=== PATIENT | female | born 1960 | race Caucasian/White ===

== ENCOUNTER 2017-01-17 11:20 | Emergency (ER) | payer MEDICARE, MEDICAID ==
--- NOTE | 2017-01-17 11:51 | ED Physician Chart ---
Chief Complaint/HPI - Patient Information Date Seen:: 01/17/17 Time Seen:: 11:15 Chief Complaint:: Per SNF pt. has RUQ pain and a "lump"in abd. History of Present Illness:: Pt. has hx dementia and is DNR per [facility]. Sent from [facility] for RUQ abd. pain by hx and an abdominal "lump". Allergies:: Allergies Allergy/AdvReac Type Severity Reaction Status Date / Time codeine AdvReac Verified 01/17/17 11:25 Penicillins [PCN] AdvReac Verified 01/17/17 11:25 Vitals:: Vital Signs - 8 hr 01/17/17 11:36 Temp 97.0 F HR 72 RR 16 BP 138/80 O2 Sat % 97 Review of Systems - Review of Systems General/Constitutional: No fever, No chills Skin: No skin lesions Head: No headache ENT: No earache, No sore throat Neck: No neck pain Cardio Vascular: No chest pain, No palpitations Pulmonary: No SOB GI: No nausea, No diarrhea G/U: No dysuria Psychiatric: Other (Hx dementia) Neurological: No syncope, No focal symptoms, No seizure, Confusion Past Medical History - Past Medical History Past Medical History: DM, Dementia, Other (hx of "kidney disease") Family History: None (Pt. cannot give good hx. No known congenital disease.) Social History: Non Smoker, No Alcohol Surgical History: None (No known surg. hx.) Psychiatricy History: Dementia Medication: Reviewed (carbamazepin, Fe, pepcid, lexapro, seroquel, Insulin, donepezil, atorvastatin, lotensin, plavix nifedipine, metoprolol, clonidine) Family Medical History - Family Member Mother History Unknown: Yes Ethnicity: Non- Living Status: Unknown Physical Exam - Physical Examination General/Constitutional: Awake, Well-developed, well-nourished, Alert, GCS 15, Non-toxic appearing (Pt. is alert and can answer basic questions, but is a poor historian. She points to R lower quad as source of pain, but there is no obvious tenderness. ) Head: Atraumatic Eyes: Lids, conjuctiva normal, PERRL, EOMI Skin: Nl inspection, No rash ENMT: External ears, nose nl Neck: Nontender, Full ROM w/o pain Respiratory: Nl effort/Exclusion, Clear to Auscultation, No Wheeze/Rhonchi/Rales Cardio Vascular: RRR, No murmur, gallop, rubs GI: No tenderness/rebounding/guarding (There is some bruising in area of R Lower (not "upper" as in report from SNF) abd.) : No CVA tenderness Neuro/Psych: Normal motor strength, No focal deficits (Pt. is conversant, but not fully oriented.) Labs/Radiology/EKG Results - Lab Results Results: UA shows RBC 5 - 10 and WBC 25 - 50. CMP show borderline K of 3.2. Gluc = 271. BUN/creat = 69/2.8 (prev. hx elevated creat, renal insufficiency, on labs sent in with pt.) CBC normal. Hgb A1c 7.9. S/p getachew, hepatomegally and kidneys nl. ED Septic Shock - . Is Septic Shock (SBP<90, OR Lactate>4 mmol\\L) present?: No - <6hrs of presentation: Vital Signs: Vital Signs - 8 hr /01/27 11:36 Temp 97.0 F HR 72 RR 16 BP 138/80 O2 Sat % 97 Reassessment (Disposition) - Diagnosis Diagnosis:: Dx: Acute UTI - Aftercare/Follow up Instructions Aftercare/Follow-Up Instructions:: Counseled pt regarding lab results/diagnosis & need follow up Medication Prescribed:: Rx: Levaquin 500 mg one po q day. Disp. #10. No refill. - Patient Disposition Discharge/Transfer:: Diet [facility] Cook Care - SNF Condition at Disposition:: Stable ED Discharge Plan - Patient Disposition Admit/Discharge/Transfer: TRANSFER TO ACUTE HOSP Condition at Disposition: Stable
[2017-01-17 11:59] LABS: % BASOPHILS 0.6 % (0.0-2.0); % EOSINOPHILS 3.5 % (0.0-5.0); % LYMPHOCYTES 25.3 % (20.0-50.0); % MONOCYTES 7.4 % (2.0-10.0); % NEUTROPHILS 63.2 % (40.0-80.0); HEMATOCRIT 36.2 % (35.0-45.0); HEMOGLOBIN 11.8 gm/dL (11.7-15.5); MEAN CELL VOLUME 85.5 fl (81-100); MEAN CORPUSCULAR HGB CONC 32.7 pg (28.0-36.0); MEAN PLATELET VOLUME 8.1 fl; NEUTROPHILE ABSOLUTE 4.7 Th/cmm (1.8-8.0); PLATELET COUNT 278 Th/cmm (150-400); RED BLOOD COUNT 4.23 Mil/cmm (3.80-5.10); RED CELL DISTRIBUTION WIDTH 12.4 % (11.5-20.0); WHITE BLOOD COUNT 7.4 Th/cmm (4.8-10.8)
[2017-01-17 12:17] LABS: ALB/GLOB RATIO 1.1 (1.0-1.8); ANION GAP 6.9 (7.0-16.0); BILIRUBIN,TOTAL 0.2 mg/dL (0.3-1.0); BUN/CREATININE RATIO 24.6; CALCIUM SERUM 9.6 mg/dL (8.6-10.3); CARBON DIOXIDE 27.3 mEq/L (21.0-31.0); CREATININE - SERUM 2.8 mg/dL (0.6-1.2); POTASSIUM SERUM 5.2 mEq/L (3.5-5.1)
[2017-01-17 12:54] LABS: URINE BILIRUBIN NEGATIVE (NEGATIVE); URINE BLOOD MODERATE (NEGATIVE); URINE COLOR YELLOW; URINE GLUCOSE (UA) 500 mg/dL (NEGATIVE); URINE KETONE NEGATIVE (NEGATIVE)
[2017-01-17 12:55] LABS: URINE PROTEIN 100 mg/dL (NEGATIVE); URINE UROBILINOGEN 0.2 E.U./dL (0.2 - 1.0)
[2017-01-17 12:59] LABS: URINE BACTERIA MANY /hpf (NONE SEEN); URINE EPITHELIAL CELLS FEW /lpf (FEW); URINE WBC 25-50 /hpf (0-5)
--- NOTE | 2017-01-17 13:19 | Diagnostic Imaging Report ---
Ultrasound abdomen HISTORY: Right upper quadrant pain. History of cholecystectomy COMPARISON: CT abdomen and pelvis on 10/22/2014 Technique: Sonography of the abdomen was performed in multiple planes. FINDINGS: Exam is limited due to body habitus and bowel gas. The liver demonstrates normal echogenicity with no evidence of focal lesions. The liver measures 18.3 cm. The gallbladder has been removed. The common bile duct measures 3 mm. Evaluation of the pancreas is limited due to bowel gas. The right kidney measures 12.0 cm. No evidence of focal lesions or hydronephrosis. The left kidney measures 12.0 cm. No evidence of focal lesions or hydronephrosis. The spleen 12.1 cm. IMPRESSION: Limited exam due to bowel gas and body habitus. Mild hepatomegaly. Nonvisualization of the gallbladder compatible with previous cholecystectomy procedure. No evidence of hydronephrosis.
--- NOTE | 2017-01-17 13:49 | Diagnostic Imaging Report ---
CT abdomen and pelvis without intravenous contrast Indication: right upper quadrant pain Comparison: CT abdomen and pelvis on 10/22/2014 and today's ultrasound 01/17/2017, Technique: Axial images were obtained from the lung bases to the bilateral proximal femurs without IV contrast. Coronal reconstructions were made. total DLP: 752, CTDI13.8 FINDINGS: Hypoventilatory changes of the lung bases are noted. Assessment of the solid organs is limited due to lack of IV contrast. No evidence of focal hepatic lesions. There is a 1 cm calcified lymph node adjacent to the IVC. The patient is status post cholecystectomy. No focal splenic or pancreatic lesions. No focal adrenal lesions. Nonspecific bilateral perinephric inflammatory changes are noted. The urinary bladder is underdistended limiting its evaluation. There is moderate amount of stool throughout the colon. Distal fecal impaction noted. No appendicitis. No free fluid or free air. Mildly distended stomach is noted. No evidence of small bowel obstruction. Degenerative changes of the spine and pelvis are noted. There is 4-mm sclerotic of the L4 vertebral body likely representing a bone island. Moderate atherosclerosis is noted. IMPRESSION: Evidence of prior cholecystectomy. Moderate amount of stool noted. Distended stomach. No evidence of small bowel obstruction No evidence of acute appendicitis. Nonspecific bilateral perinephric inflammatory changes Moderate atherosclerotic vascular disease.
== END 2017-01-17 14:00 | disposition short-term general hospital (02) ==
LOC: ER 11:20
DX: N39.0 Urinary tract infection, site not specified (principal); E11.9 Type 2 diabetes mellitus without complications; Z88.0 Allergy status to penicillin; Z88.5 Allergy status to narcotic agent
CPT/HCPCS: 36415-UA; 76700-TC; 80053-TC; 81001-TC; 83036-90; 85025-TC; 87086-90; Z7610

== ENCOUNTER 2017-01-20 15:33 | Inpatient (IN) | payer MEDICARE, MEDICAID ==
[2017-01-20 16:07] LABS: % BASOPHILS 1.1 % (0.0-2.0); % EOSINOPHILS 3.1 % (0.0-5.0); % LYMPHOCYTES 21.9 % (20.0-50.0); % MONOCYTES 7.8 % (2.0-10.0); % NEUTROPHILS 66.1 % (40.0-80.0); HEMOGLOBIN 11.2 gm/dL (11.7-15.5); MEAN CELL VOLUME 82.9 fl (81-100); MEAN CORPUSCULAR HEMOGLOBIN 28.7 pg (27.0-31.0); MEAN CORPUSCULAR HGB CONC 34.7 pg (28.0-36.0); MEAN PLATELET VOLUME 8.3 fl; PLATELET COUNT 248 Th/cmm (150-400); RED BLOOD COUNT 3.88 Mil/cmm (3.80-5.10); RED CELL DISTRIBUTION WIDTH 12.2 % (11.5-20.0)
[2017-01-20 16:08] LABS: HEMATOCRIT 32.2 % (35.0-45.0); WHITE BLOOD COUNT 9.1 Th/cmm (4.8-10.8)
[2017-01-20 16:19] LABS: PROTHROMBIN TIME (TEST) 10.4 SECONDS (9.5-11.5)
[2017-01-20 16:23] LABS: ALB/GLOB RATIO 1.2 (1.0-1.8); ANION GAP 8.8 (7.0-16.0); BILIRUBIN,TOTAL 0.2 mg/dL (0.3-1.0); BUN/CREATININE RATIO 24.8; CALCIUM SERUM 8.9 mg/dL (8.6-10.3); CARBON DIOXIDE 23.1 mEq/L (21.0-31.0); CHOLESTEROL 255 mg/dL (<200); CREATININE - SERUM 2.7 mg/dL (0.6-1.2); POTASSIUM SERUM 4.9 mEq/L (3.5-5.1); TRIGLYCERIDES 419 mg/dL (<150)
--- NOTE | 2017-01-20 16:27 | ED Physician Chart ---
Chief Complaint/HPI - Patient Information Date Seen:: 01/20/17 Time Seen:: 15:40 Chief Complaint:: abdominal pain History of Present Illness:: this is a 56 yo female sent from the [facility] with recurrent lower abdominal pain and she is demented. she is unable to think to give a review of systems.. Allergies:: Allergies Allergy/AdvReac Type Severity Reaction Status Date / Time codeine AdvReac Verified 01/17/17 11:25 Penicillins [PCN] AdvReac Verified 01/17/17 11:25 Vitals:: Vital Signs - 8 hr 01/20/17 15:36 Temp 98.5 F HR 67 RR 16 BP 134/67 O2 Sat % 97 Historian:: EMS, Medical Records Review:: Nurse's Note Reviewed, Patient unable to respond Review of Systems - Review of Systems General/Constitutional: No fever, No chills, No weight loss, No weakness, No diaphoresis, No edema, No loss of appetite, Other (cannot respond) Skin: No skin lesions, No rash, No bruising Head: No headache, No light-headedness Eyes: No loss of vision, No pain, No diplopia ENT: No earache, No nasal drainage, No sore throat, No tinnitus Neck: No neck pain, No swelling, No thyromegaly, No stiffness, No mass noted Cardio Vascular: No chest pain, No palpitations, No PND, No orthopnea, No edema Pulmonary: No SOB, No cough, No sputum, No wheezing GI: No nausea, No vomiting, No diarrhea, No pain, No melena, No hematochezia, No constipation, No hematemesis G/U: No dysuria, No frequency, No hematuria Musculoskeletal: No bone or joint pain, No back pain, No muscle pain Endocrine: No polyuria, No polydipsia Psychiatric: No prior psych history, No depression, No anxiety, No suicidal ideation Hematopoietic: No bruising, No lymphadenopathy Allergic/Immuno: No urticaria, No angioedema Neurological: No syncope, No focal symptoms, No weakness, No paresthesia, No headache, No seizure, No dizziness, No confusion, No vertigo Past Medical History - Past Medical History Obtainable: Yes Past Medical History: HTN, CVA/TIA, Dementia Family History: None Social History: Non Smoker, No Alcohol, No Drug Use, Care Facility Surgical History: None Psychiatricy History: Dementia Medication: Reviewed Family Medical History - Family Member Mother History Unknown: Yes Ethnicity: Non- Living Status: Unknown Physical Exam - Physical Examination General/Constitutional: Awake, Well-developed, well-nourished, Alert, No distress, GCS 15, Non-toxic appearing, Ambulatory Other Gen/Cons comments:: confused and disoriented. Head: Atraumatic Eyes: Lids, conjuctiva normal, PERRL, EOMI Skin: Nl inspection, No rash, No skin lesions, No ecchymosis, Well hydrated, No lymphadenopathy ENMT: External ears, nose nl, Nasal exam nl, Lips, teeth, gums nl Neck: Nontender, Full ROM w/o pain, No JVD, No nuchal rigidity, No bruit, No mass, No stridor Respiratory: Nl effort/Exclusion, Clear to Auscultation, No Wheeze/Rhonchi/Rales Cardio Vascular: RRR, No murmur, gallop, rubs, NL S1 S2 GI: No organomegaly, No hernia, Normal BS's, No mass/bruits, No McBurney tenderness Other GI comments:: the abdomen and distended and tender : No CVA tenderness Extremities: No tenderness or effusion, Full ROM, normal strength in all extremities, No edema, Normal digits & nails Neuro/Psych: Alert/oriented, DTR's symmetric, Normal sensory exam, Normal motor strength, Judgement/insight normal, Mood normal, Normal gait, No focal deficits Misc: normal gait, Normal back, No paraspinal tenderness Labs/Radiology/EKG Results - Lab Results Results: Laboratory Tests 01/20/17 15:57 WBC 9.1 D RBC 3.88 Hgb 11.2 L Hct 32.2 L D MCV 82.9 MCH 28.7 MCHC Differential 34.7 RDW 12.2 Plt Count 248 MPV 8.3 Neutrophils % 66.1 Lymphocytes % 21.9 Monocytes % 7.8 Eosinophils % 3.1 Basophils % 1.1 - Radiology Results Results: chest x-ray = nad - EKG Interpretations EKG Time:: 15:45 Rate & Rhythm: rate=67 sinus [place]: right axis Intervals: no ectopy Assessment - Assessment General Assessment: urinary tract infection, dehydration, hyperglycemia. ED Septic Shock - . Is Septic Shock (SBP<90, OR Lactate>4 mmol\L) present?: No - <6hrs of presentation: Vital Signs: Vital Signs - 8 hr 01/20/17 15:36 Temp 98.5 F HR 67 RR 16 BP 134/67 O2 Sat % 97 Reassessment (Disposition) - Reassessment Reassessment Condition:: Improved - Diagnosis Diagnosis:: DEHYDRATION DIABETES MELLITUS UNCONTROLLED RESOLVING URINARY TRACT INFECTION. DEMENTIA - Patient Disposition Discharge/Transfer:: Acute Care w/in this hosp
[2017-01-20] MEDS ORDERED: Sodium Chloride 0.9% 1,000 ML IV ONE (16:31)
[2017-01-20] MEDS ORDERED: cefTRIAXone 1 GM in Sodium Chloride 0.9% 50 ML IV ONE (16:42)
[2017-01-20] MEDS ORDERED: INSULIN HUMAN REGULAR 100 UNITS/ML UNIT SUBQ ONE (16:44)
[2017-01-20 16:52] LABS: URINE BILIRUBIN NEGATIVE (NEGATIVE); URINE BLOOD TRACE (NEGATIVE); URINE COLOR YELLOW; URINE EPITHELIAL CELLS FEW /lpf (FEW); URINE GLUCOSE (UA) 500 mg/dL (NEGATIVE); URINE KETONE NEGATIVE (NEGATIVE); URINE PROTEIN 30 mg/dL (NEGATIVE); URINE RBC 0-2 /hpf (0-5); URINE UROBILINOGEN 0.2 E.U./dL (0.2 - 1.0)
[2017-01-20 16:53] LABS: URINE BACTERIA FEW /hpf (NONE SEEN)
[2017-01-20] MEDS ORDERED: Morphine Sulfate 2 mg/mL 1mL Syr IVP PRN (19:48)
[2017-01-20] MEDS ORDERED: INSULIN HUMAN REGULAR 100 UNITS/ML UNIT ONE (20:00)
[2017-01-20] MEDS ORDERED: Levofloxacin 500mg/100mL 500 MG/100 ML BAG IV ONE (21:00)
[2017-01-20] MEDS: D5-0.45NS 1,000 ML IV SCH (22:42)
[2017-01-20] MEDS: INSULIN ASPART SLIDING SCALE 100 UNITS/ML UNIT SUBQ SCH (22:46)
[2017-01-21] MEDS: metroNIDAZOLE 500mg/NS 100mL 500 MG/100 ML BAG IV SCH ×4 (00:03→20:12)
--- NOTE | 2017-01-21 06:13 | History and Physical ---
History of Present Illness - HPI Chief Complaint: Right sided abdominal pain. HPI: 56 yrs female with complex medical problems lives in senior care sent to ER for evaluation of RUQ abd pain reurrent in nature. She was seen by ER on 01/17/17 for evaluation of same symptoms but sent back to [facility] with diagnosis of UTI. Patient is also having assocciated nausea, and constipation.Patient denies other symptoms, she does hav epsych history with dementia history is unreliable but she continue to complain about same symptoms which requires further investigation. She is now admiotted for evaluation of her symptoms. Vital Signs: Last Vital Signs Temp 98.4 F 01/21/17 04:00 Pulse 70 01/21/17 04:00 Resp 18 01/21/17 04:00 BP 146/73 01/21/17 04:00 Pulse Ox 98 01/21/17 04:00 Past Medical History Cardiovascular: Report: HTN Pulmonary: Report: COPD [employer]: Report: CVA GI: Report: GERD Psych: Report: Other (dementia) Musculoskeletal: Report: Osteoarthritis, Muscle Atrophy Rheumatologic: Report: No pertinent Hx Infectious Disease: Report: No Pertinent Hx Renal/: Report: Chronic Renal Failure Endocrine: Report: Diabetes, Hyperthyroidism - Past Surgical History Past Surgical History: Cholecystectomy Family Medical History - Family Member Mother History Unknown: Yes Ethnicity: Non- Living Status: Unknown Hx Family Cancer: No Hx Family Coronary Artery Disease: No Hx Family Congestive Heart Failure: No Hx Family Hypertension: No Hx Family Stroke: No Hx Family Diabetes: Yes Social History Smoke: No Alcohol: None Drugs: None Lives: [facility] Domestic Violence: Negative - Medications Home Medications: Home Medication Medication Instructions Recorded Type carBAMazepine [TEGretol*] 200 mg PO TID #0 tab 10/24/14 Rx Benazepril [Lotensin] 20 mg PO BID 11/19/14 History cloNIDine HCl [Catapres] 0.1 mg PO TID 11/19/14 History Insulin Aspart Sliding Scale See Protocol SUBQ ACHS 11/22/15 History [NovoLOG INSULIN SLIDING SCALE] Nifedipine [Procardia Xl*] 90 mg PO DAILY 11/22/15 History Atorvastatin Calcium [Lipitor] 40 mg PO HS #0 tab 12/01/15 Rx Clopidogrel [Plavix] 75 mg PO DAILY #0 tab 12/01/15 Rx Metoprolol Succinate [Toprol Xl] 50 mg PO DAILY #0 12/01/15 Rx Escitalopram Oxalate [Lexapro] 2.5 mg PO DAILY 01/17/17 History Acetaminophen [Tylenol] 650 mg PO Q6HR PRN 01/20/17 History Cranberry Fruit [Cranberry] 450 mg PO DAILY 01/20/17 History Donepezil Hcl [Aricept] 5 mg PO HS 01/20/17 History Famotidine [Pepcid] 20 mg PO BID 01/20/17 History Fenofibrate,Micronized 134 mg PO DAILY 01/20/17 History [Fenofibrate] Ferrous Sulfate [Iron] 325 mg PO DAILY 01/20/17 History Insulin Detemir [Levemir Insulin] 15 units SUBQ DAILY 01/20/17 History Latanoprost 0.005% Ophth Soln 1 drop EACH EYE QPM 01/20/17 History [Xalatan 0.005% Ophth Soln] Multivitamin w/ Minerals 1 tab PO DAILY 01/20/17 History [Theragran M] QUEtiapine Fumarate [SEROquel] 25 mg PO HS 01/20/17 History - Allergies Allergies/Adverse Reactions: Allergies Allergy/AdvReac Type Severity Reaction Status Date / Time codeine AdvReac Verified 01/17/17 11:25 Penicillins [PCN] AdvReac Verified 01/17/17 11:25 Review of Systems - Review of Systems Constitutional: Report: Other (unable to get meaning ful history) Eyes: Report: Other ENT: Report: Other Respiratory: Report: Other Cardiovascular: Report: Other Gastrointestinal: Report: Nausea, Constipation Genitourinary: Report: No Significant, Other Musculoskeletal: Report: No Significant Skin: Report: No Significant Neurological: Report: No Significant Other: Due to her psych and dementia unable to get meaningful history. Physical Exam - Physical Exam HEENT: Report: Ears Nose Throat within normal limits, Pale Conjunctiva Neck: Report: Within normal limits Cardiovascular Systems: Report: Regular, Rate and Rhythm, no murmurs noted, No JVD Present Respiratory: Report: Clear to Auscultation of lung monet Abdomen: Report: Tender to palpation Back: Report: Inspection of back is within normal limits. Extremities: Report: Non-tender to palpation. Skin: Report: Color of skin is within normal limits Neuro/Psych: Report: Disoriented to name time or place, Weakness or sensory loss noted. - Lab Results All Lab Results last 24 hours: Laboratory Last Values WBC 9.1 Th/cmm (4.8-10.8) D 01/20/17 15:57 RBC 3.88 Mil/cmm (3.80-5.10) 01/20/17 15:57 Hgb 11.2 gm/dL (11.7-15.5) L 01/20/17 15:57 Hct 32.2 % (35.0-45.0) L D 01/20/17 15:57 MCV 82.9 fl (81-100) 01/20/17 15:57 MCH 28.7 pg (27.0-31.0) 01/20/17 15:57 MCHC Differential 34.7 pg (28.0-36.0) 01/20/17 15:57 RDW 12.2 % (11.5-20.0) 01/20/17 15:57 Plt Count 248 Th/cmm (150-400) 01/20/17 15:57 MPV 8.3 fl 01/20/17 15:57 Neutrophils % 66.1 % (40.0-80.0) 01/20/17 15:57 Lymphocytes % 21.9 % (20.0-50.0) 01/20/17 15:57 Monocytes % 7.8 % (2.0-10.0) 01/20/17 15:57 Eosinophils % 3.1 % (0.0-5.0) 01/20/17 15:57 Basophils % 1.1 % (0.0-2.0) 01/20/17 15:57 PT 10.4 SECONDS (9.5-11.5) 01/20/17 15:57 INR 1.00 (0.5-1.4) 01/20/17 15:57 PTT (Actin FS) 25.0 SECONDS (26.0-38.0) L 01/20/17 15:57 Sodium 131 mEq/L (136-145) L 01/20/17 15:57 Potassium 4.9 mEq/L (3.5-5.1) 01/20/17 15:57 Chloride 104 mEq/L (98-107) 01/20/17 15:57 Carbon Dioxide 23.1 mEq/L (21.0-31.0) 01/20/17 15:57 Anion Gap 8.8 (7.0-16.0) 01/20/17 15:57 BUN 67 mg/dL (7-25) H 01/20/17 15:57 Creatinine 2.7 mg/dL (0.6-1.2) H 01/20/17 15:57 Est GFR ( Amer) 23.6 ml/min (>90) 01/20/17 15:57 Est GFR (Non-Af Amer) 19.5 ml/min 01/20/17 15:57 BUN/Creatinine Ratio 24.8 01/20/17 15:57 Glucose 315 mg/dL (70-105) H 01/20/17 15:57 POC Glucose 236 MG/DL (70 - 105) H 01/21/17 05:44 Calcium 8.9 mg/dL (8.6-10.3) 01/20/17 15:57 Total Bilirubin 0.2 mg/dL (0.3-1.0) L 01/20/17 15:57 AST 17 U/L (13-39) 01/20/17 15:57 ALT 16 U/L (7-52) 01/20/17 15:57 Alkaline Phosphatase 34 U/L (34-104) 01/20/17 15:57 Troponin I 0.01 ng/mL (0.01-0.05) 01/20/17 15:57 Total Protein 6.7 gm/dL (6.0-8.3) 01/20/17 15:57 Albumin 3.6 gm/dL (3.7-5.3) L 01/20/17 15:57 Globulin 3.1 gm/dL 01/20/17 15:57 Albumin/Globulin Ratio 1.2 (1.0-1.8) 01/20/17 15:57 Triglycerides 419 mg/dL (<150) H 01/20/17 15:57 Cholesterol 255 mg/dL (<200) H 01/20/17 15:57 LDL Cholesterol Direct 136 mg/dL (75-193) 01/20/17 15:57 HDL Cholesterol 31 mg/dL (23-92) 01/20/17 15:57 TSH 2.64 uIU/ml (0.34-5.60) 01/20/17 15:57 Urine Source CLEAN C 01/20/17 16:40 Urine Color YELLOW 01/20/17 16:40 Urine Clarity CLEAR (CLEAR) 01/20/17 16:40 Urine pH 5.0 01/20/17 16:40 Ur Specific [place] 1.010 (1.005-1.030) 01/20/17 16:40 Urine Protein 30 mg/dL (NEGATIVE) H 01/20/17 16:40 Urine Glucose (UA) 500 mg/dL (NEGATIVE) H 01/20/17 16:40 Urine Ketones NEGATIVE mg/dL (NEGATIVE) 01/20/17 16:40 Urine Blood TRACE (NEGATIVE) 01/20/17 16:40 Urine Nitrate NEGATIVE (NEGATIVE) 01/20/17 16:40 Urine Bilirubin NEGATIVE (NEGATIVE) 01/20/17 16:40 Urine Urobilinogen 0.2 E.U./dL (0.2 - 1.0) 01/20/17 16:40 Ur Leukocyte Esterase NEGATIVE (NEGATIVE) 01/20/17 16:40 Urine RBC 0-2 /hpf (0-5) 01/20/17 16:40 Urine WBC 2-5 /hpf (0-5) 01/20/17 16:40 Ur Epithelial Cells FEW /lpf (FEW) 01/20/17 16:40 Urine Bacteria FEW /hpf (NONE SEEN) 01/20/17 16:40 RPR NONREACTIVE (NONREACTIVE) 01/20/17 15:57 Laboratory Results - last 24 hr 01/20/17 01/21/17 22:44 05:44 POC Glucose 163 H 236 H - Assessment Assessment: Current Active Problems Problem Status Onset RIGHT UPPER QUADRANT PAIN Acute Right upper quadrent abdominal pain. CVA with left sided weakness. Diabetes mellitus. Psych Disorder DJD CKD 3 Hypertension S/P cholecystectomy Fall risk UTI - Plan Plan: GI consult Full liquid diet IV antbiotics Needs EGD Abdominal ultrasound. Diabetes management Reconcile meds Fall precautions Follow up lab Follow consultants recommendations. Care plan reviewed with staff
[2017-01-21] MEDS: INSULIN ASPART SLIDING SCALE 100 UNITS/ML UNIT SUBQ SCH ×4 (06:59→20:40)
[2017-01-21 07:11] LABS: % EOSINOPHILS 3.3 % (0.0-5.0); % LYMPHOCYTES 24.5 % (20.0-50.0); % MONOCYTES 7.8 % (2.0-10.0); % NEUTROPHILS 63.4 % (40.0-80.0); HEMATOCRIT 32.3 % (35.0-45.0); HEMOGLOBIN 10.8 gm/dL (11.7-15.5); MEAN CELL VOLUME 85.3 fl (81-100); MEAN CORPUSCULAR HEMOGLOBIN 28.5 pg (27.0-31.0); MEAN CORPUSCULAR HGB CONC 33.4 pg (28.0-36.0); MEAN PLATELET VOLUME 7.9 fl; NEUTROPHILE ABSOLUTE 5.4 Th/cmm (1.8-8.0); PLATELET COUNT 225 Th/cmm (150-400); RED BLOOD COUNT 3.79 Mil/cmm (3.80-5.10); RED CELL DISTRIBUTION WIDTH 12.5 % (11.5-20.0); WHITE BLOOD COUNT 8.6 Th/cmm (4.8-10.8)
[2017-01-21 07:32] LABS: ALB/GLOB RATIO 1.2 (1.0-1.8); ANION GAP 8.8 (7.0-16.0); BILIRUBIN,TOTAL 0.2 mg/dL (0.3-1.0); BUN/CREATININE RATIO 23.5; CALCIUM SERUM 8.9 mg/dL (8.6-10.3); CARBON DIOXIDE 24.7 mEq/L (21.0-31.0); CREATININE - SERUM 2.6 mg/dL (0.6-1.2); POTASSIUM SERUM 4.5 mEq/L (3.5-5.1)
[2017-01-21] MEDS: Escitalopram Oxalate 5 mg Tab PO SCH (09:54)
[2017-01-21] MEDS: NIFEdipine 30 mg ER Tab PO SCH (09:54)
[2017-01-21] MEDS: Fenofibrate, Micronized 134 mg Cap PO SCH (09:54)
[2017-01-21] MEDS: Enoxaparin 30 mg/0.3 mL 0.3mL Syr SUBQ SCH (09:58)
[2017-01-21] MEDS ORDERED: Morphine Sulfate 4 mg/mL 1mL Syr IVP PRN (11:15)
--- NOTE | 2017-01-21 11:18 | Diagnostic Imaging Report ---
Portable chest x-ray HISTORY: Cough The heart size appears somewhat generous. No focal pulmonary processes. No hilar or mediastinal abnormalities. IMPRESSION: 1. No acute abnormalities
[2017-01-21] MEDS: D5-0.45NS 1,000 ML IV SCH (12:51)
[2017-01-21] MEDS: Levofloxacin 250 mg/50 mL Premix Bag IV SCH (21:37)
[2017-01-22] MEDS: metroNIDAZOLE 500mg/NS 100mL 500 MG/100 ML BAG IV SCH ×3 (05:11→21:12)
[2017-01-22] MEDS: D5-0.45NS 1,000 ML IV SCH ×2 (05:12→12:48)
[2017-01-22 06:12] LABS: % BASOPHILS 0.5 % (0.0-2.0); % EOSINOPHILS 3.3 % (0.0-5.0); % LYMPHOCYTES 26.2 % (20.0-50.0); % MONOCYTES 7.5 % (2.0-10.0); % NEUTROPHILS 62.5 % (40.0-80.0); HEMATOCRIT 32.7 % (35.0-45.0); HEMOGLOBIN 10.9 gm/dL (11.7-15.5); MEAN CELL VOLUME 85.3 fl (81-100); MEAN CORPUSCULAR HEMOGLOBIN 28.5 pg (27.0-31.0); MEAN CORPUSCULAR HGB CONC 33.3 pg (28.0-36.0); MEAN PLATELET VOLUME 7.7 fl; NEUTROPHILE ABSOLUTE 4.5 Th/cmm (1.8-8.0); PLATELET COUNT 243 Th/cmm (150-400); RED BLOOD COUNT 3.84 Mil/cmm (3.80-5.10); RED CELL DISTRIBUTION WIDTH 12.2 % (11.5-20.0); WHITE BLOOD COUNT 7.1 Th/cmm (4.8-10.8)
[2017-01-22 06:58] LABS: ALB/GLOB RATIO 1.1 (1.0-1.8); BILIRUBIN,TOTAL 0.3 mg/dL (0.3-1.0); BUN/CREATININE RATIO 19.5; CALCIUM SERUM 8.8 mg/dL (8.6-10.3); CREATININE - SERUM 2.2 mg/dL (0.6-1.2); POTASSIUM SERUM 4.3 mEq/L (3.5-5.1)
[2017-01-22 07:41] LABS: ANION GAP 6.6 (7.0-16.0); CARBON DIOXIDE 25.7 mEq/L (21.0-31.0)
[2017-01-22] MEDS: INSULIN ASPART SLIDING SCALE 100 UNITS/ML UNIT SUBQ SCH ×4 (08:04→21:21)
[2017-01-22] MEDS: Escitalopram Oxalate 5 mg Tab PO SCH (09:00)
[2017-01-22] MEDS: Fenofibrate, Micronized 134 mg Cap PO SCH (09:01)
[2017-01-22] MEDS: NIFEdipine 30 mg ER Tab PO SCH (09:02)
[2017-01-22] MEDS: Enoxaparin 30 mg/0.3 mL 0.3mL Syr SUBQ SCH (09:02)
--- NOTE | 2017-01-22 12:02 | Internal Medicine Prog Note ---
Internal Medicine Subjective - Subjective Patient seen and examined:: with staff, chart reviewed Patient is:: awake, in bed, confused, other (unable to get meaningful history from patient due to her psych and dementia history) Internal Medicine Objective - Results Result Diagrams: 01/22/17 06:05 01/22/17 06:05 Recent Labs: Laboratory Last Values WBC 7.1 Th/cmm (4.8-10.8) 01/22/17 06:05 RBC 3.84 Mil/cmm (3.80-5.10) 01/22/17 06:05 Hgb 10.9 gm/dL (11.7-15.5) L 01/22/17 06:05 Hct 32.7 % (35.0-45.0) L 01/22/17 06:05 MCV 85.3 fl (81-100) 01/22/17 06:05 MCH 28.5 pg (27.0-31.0) 01/22/17 06:05 MCHC Differential 33.3 pg (28.0-36.0) 01/22/17 06:05 RDW 12.2 % (11.5-20.0) 01/22/17 06:05 Plt Count 243 Th/cmm (150-400) 01/22/17 06:05 MPV 7.7 fl 01/22/17 06:05 Neutrophils % 62.5 % (40.0-80.0) 01/22/17 06:05 Lymphocytes % 26.2 % (20.0-50.0) 01/22/17 06:05 Monocytes % 7.5 % (2.0-10.0) 01/22/17 06:05 Eosinophils % 3.3 % (0.0-5.0) 01/22/17 06:05 Basophils % 0.5 % (0.0-2.0) 01/22/17 06:05 PT 10.4 SECONDS (9.5-11.5) 01/20/17 15:57 INR 1.00 (0.5-1.4) 01/20/17 15:57 PTT (Actin FS) 25.0 SECONDS (26.0-38.0) L 01/20/17 15:57 Sodium 136 mEq/L (136-145) 01/22/17 06:05 Potassium 4.3 mEq/L (3.5-5.1) 01/22/17 06:05 Chloride 108 mEq/L (98-107) H 01/22/17 06:05 Carbon Dioxide 25.7 mEq/L (21.0-31.0) 01/22/17 06:05 Anion Gap 6.6 (7.0-16.0) L 01/22/17 06:05 BUN 43 mg/dL (7-25) H 01/22/17 06:05 Creatinine 2.2 mg/dL (0.6-1.2) H 01/22/17 06:05 Est GFR ( Amer) 29.9 ml/min (>90) 01/22/17 06:05 Est GFR (Non-Af Amer) 24.7 ml/min 01/22/17 06:05 BUN/Creatinine Ratio 19.5 01/22/17 06:05 Glucose 195 mg/dL (70-105) H 01/22/17 06:05 POC Glucose 206 MG/DL (70 - 105) H 01/22/17 06:41 Calcium 8.8 mg/dL (8.6-10.3) 01/22/17 06:05 Total Bilirubin 0.3 mg/dL (0.3-1.0) 01/22/17 06:05 AST 19 U/L (13-39) 01/22/17 06:05 ALT 15 U/L (7-52) 01/22/17 06:05 Alkaline Phosphatase 31 U/L (34-104) L 01/22/17 06:05 Troponin I 0.01 ng/mL (0.01-0.05) 01/20/17 15:57 Total Protein 6.3 gm/dL (6.0-8.3) 01/22/17 06:05 Albumin 3.3 gm/dL (3.7-5.3) L 01/22/17 06:05 Globulin 3.0 gm/dL 01/22/17 06:05 Albumin/Globulin Ratio 1.1 (1.0-1.8) 01/22/17 06:05 Triglycerides 419 mg/dL (<150) H 01/20/17 15:57 Cholesterol 255 mg/dL (<200) H 01/20/17 15:57 LDL Cholesterol Direct 136 mg/dL (75-193) 01/20/17 15:57 HDL Cholesterol 31 mg/dL (23-92) 01/20/17 15:57 Amylase 44 U/L (29-103) 01/21/17 06:55 Lipase 36 U/L (11-82) 01/21/17 06:55 TSH 2.64 uIU/ml (0.34-5.60) 01/20/17 15:57 Urine Source CLEAN C 01/20/17 16:40 Urine Color YELLOW 01/20/17 16:40 Urine Clarity CLEAR (CLEAR) 01/20/17 16:40 Urine pH 5.0 01/20/17 16:40 Ur Specific [place] 1.010 (1.005-1.030) 01/20/17 16:40 Urine Protein 30 mg/dL (NEGATIVE) H 01/20/17 16:40 Urine Glucose (UA) 500 mg/dL (NEGATIVE) H 01/20/17 16:40 Urine Ketones NEGATIVE mg/dL (NEGATIVE) 01/20/17 16:40 Urine Blood TRACE (NEGATIVE) 01/20/17 16:40 Urine Nitrate NEGATIVE (NEGATIVE) 01/20/17 16:40 Urine Bilirubin NEGATIVE (NEGATIVE) 01/20/17 16:40 Urine Urobilinogen 0.2 E.U./dL (0.2 - 1.0) 01/20/17 16:40 Ur Leukocyte Esterase NEGATIVE (NEGATIVE) 01/20/17 16:40 Urine RBC 0-2 /hpf (0-5) 01/20/17 16:40 Urine WBC 2-5 /hpf (0-5) 01/20/17 16:40 Ur Epithelial Cells FEW /lpf (FEW) 01/20/17 16:40 Urine Bacteria FEW /hpf (NONE SEEN) 01/20/17 16:40 RPR NONREACTIVE (NONREACTIVE) 01/20/17 15:57 - Physical Exam Vitals and I&O: Vital Signs Temp 97.8 F 01/22/17 08:00 Pulse 81 01/22/17 10:29 Resp 19 01/22/17 08:00 BP 185/89 01/22/17 09:02 Pulse Ox 97 01/22/17 08:00 Intake & Output 01/21/17 01/22/17 01/22/17 18:59 06:59 18:59 Intake Total 1350 2200 Balance 1350 2200 Weight (lbs) 91.172 kg 91.172 kg Intake: Intake, IV Amount 1100 2100 D5-0.45NS 1,000 ml @ 100 1000 1000 mls/hr IV .Q10H [facility] Rx#: [id number] metroNIDAZOLE 500mg/NS 100 100 100mL 500 mg In 100 ml @ 100 mls/hr IV Q8HR [facility] Rx #:[id number] Oral 250 100 Other: # Voids 2 2 # Bowel Movements 0 Active Medications: Current Medications Acetaminophen (Tylenol) 650 mg PO Q6HR PRN PRN Reason: PAIN Stop: 03/21/17 19:55 Benazepril HCl (Lotensin) 20 mg PO BID [facility] Stop: 03/22/17 08:59 Last Admin: 01/22/17 09:01 Dose: 20 mg Carbamazepine (Tegretol) 200 mg PO TID [facility] PRN Reason: Protocol Stop: 03/21/17 20:59 Last Admin: 01/22/17 09:01 Dose: 200 mg Clonidine HCl (Catapres) 0.1 mg PO TID [facility] Stop: 03/21/17 20:59 Last Admin: 01/22/17 10:29 Dose: Not Given Clopidogrel Bisulfate (Plavix) 75 mg PO DAILY [facility] Stop: 03/22/17 08:59 Last Admin: 01/22/17 09:01 Dose: 75 mg Donepezil HCl (Aricept) 5 mg PO HS [facility] Stop: 03/21/17 20:59 Last Admin: 01/21/17 20:39 Dose: 5 mg Enoxaparin Sodium (Lovenox) 30 mg SUBQ DAILY [facility] Stop: 03/22/17 08:59 Last Admin: 01/22/17 09:02 Dose: 30 mg Escitalopram Oxalate (Lexapro) 2.5 mg PO DAILY [facility] PRN Reason: Protocol Stop: 03/22/17 08:59 Last Admin: 01/22/17 09:00 Dose: 2.5 mg Fenofibrate (Tricor) 134 mg PO DAILY [facility] Stop: 03/22/17 08:59 Last Admin: 01/22/17 09:01 Dose: 134 mg Dextrose/Sodium Chloride (D5-0.45ns) 1,000 mls @ 100 mls/hr IV .Q10H [facility] Stop: 03/21/17 19:59 Last Admin: 01/22/17 05:12 Dose: 100 mls/hr Metronidazole (Flagyl) 500 mg in 100 mls @ 100 mls/hr IV Q8HR [facility] Stop: 03/21/17 20:59 Last Admin: 01/22/17 05:11 Dose: 100 mls/hr Levofloxacin (Levaquin Pb) 250 mg in 50 mls @ 50 mls/hr IV Q24HR [facility] Stop: 03/22/17 20:59 Last Admin: 01/21/17 21:37 Dose: 50 mls/hr Insulin Aspart (Novolog Insulin Sliding Scale) 0 units SUBQ ACHS [facility] PRN Reason: Protocol Stop: 03/21/17 20:59 Last Admin: 01/22/17 08:04 Dose: Not Given Latanoprost (Xalatan 0.005% [facility]) 1 drop EACH EYE QPM [facility] Stop: 03/22/17 16:59 Last Admin: 01/21/17 17:11 Dose: 1 drop Lorazepam (Ativan) 1 mg IVP Q4H PRN; Protocol PRN Reason: Anxiety/Agitation Stop: 03/21/17 19:47 Metoprolol Succinate (Toprol Xl) 50 mg PO DAILY [facility] Stop: 03/22/17 08:59 Last Admin: 01/22/17 09:01 Dose: 50 mg Miscellaneous (Clinical Monitoring) 1 ea MC DAILY PRN PRN Reason: RENAL Stop: 03/22/17 09:03 Morphine Sulfate (Morphine) 2 mg IVP Q4H PRN PRN Reason: SEVERE PAIN Stop: 03/22/17 11:14 Last Admin: 01/21/17 11:29 Dose: 2 mg Nifedipine (Procardia Xl) 90 mg PO DAILY [facility] Stop: 03/22/17 08:59 Last Admin: 01/22/17 09:02 Dose: 90 mg Ondansetron HCl (Zofran) 4 mg IVP Q6H PRN PRN Reason: Nausea / Vomiting Stop: 03/21/17 19:47 Last Admin: 01/21/17 11:29 Dose: 4 mg Quetiapine Fumarate (Seroquel) 25 mg PO HS [facility] PRN Reason: Protocol Stop: 03/21/17 20:59 Last Admin: 01/21/17 20:39 Dose: 25 mg General: alert HEENT: NC/AT, PERRLA, EOMI Neck: Supple, No JVD Lungs: CTAB Cardiovascular: RRR Abdomen: soft, other (right upper quadrant tenderness noted) Extremities: clear, other (no clubbing or cyanosis.) Neurological: alert, spastic, other (right-sided weakness and spasticity noted.) - Procedures Procedures: Procedures Procedure Code Date EGD BIOPSY SINGLE/MULTIPLE 99635 12/29/14 ESOPHAGOGASTRODUODENOSCOPY [EGD] W/CLOSED BIOPSY 45.16 12/29/14 Internal Medicine Assmt/Plan - Assessment Assessment: Current Active Problems Problem Status Onset RIGHT UPPER QUADRANT PAIN Acute Right upper quadrent abdominal pain. CVA with left sided weakness. Diabetes mellitus. Psych Disorder DJD CKD 3 Hypertension S/P cholecystectomy Fall risk UTI - Plan Plan: Discussed with gastroenterology about further workup will proceed with EGD I will continue pain management IV antibiotic. General nursing care. Keep her on full liquid diet. Monitor glucose and vital. Follow lab. Follow organizational consultant's recommendations. Symptoms management. Medication management. MAR and reviewed. Nutritional Asmnt/Malnutr-PDOC - Dietary Evaluation Malnutrition Findings (Please click <Entered> for more info): Nutritional Asmnt/Malnutrition Start: 01/21/17 16: 15 Text: Status: Complete Freq: Document 01/21/17 16:15 GSUN (Rec: 01/21/17 16:41 GSUN [email or web address]) Nutritional Asmnt/Malnutrition Patient General Information Nutritional Screening Consult Diagnosis Abd pain, CVA left sided weakness, DM, CKD 3, psych disorder Pertinent Medical Hx/Surgical Hx HTN, COPD, CVA, GERD, dementia , osteoarthritis, muscle atrophy, chronic renal failure , DM, hyperthyroidism, cholecystectomy Subjective Information 56 [address] consult for glucose >180. Pt was pleasant, but a questionable/ poor historian. spoke to SHAILESH Garcia, pt is currently on clear liquid, NPO after midnight for possible procedures tomorrow. Explained to pt nutrition plan or care, CCHO low sodium diet when diet resumed, pt appeared pleasant but confused. Teeth intact. Pt report usually good appetite. No wasting noted. Pt does not know UBW. CBW 204. 3lb via bedscale. Current Diet Order/ Nutrition Support Clear liquid Pertinent Medications D5-0.45ns, Novolog, Levaquin, Flagyl, Morphine, Zofran, Seroquel Pertinent Labs 01/21: BUN 61H, creatinine 2.6H , glucose 191H Nutritional Hx/Data Height 1.6 m Height (Calculated Centimeters) 160.0 Current Weight (lbs) 92.669 kg Weight (Calculated Kilograms) 92.7 Weight (Calculated Grams) 81923.9 [place] Body Weight 115 Weight Status Obese GI Symptoms Skin Integrity/Comment: José Luis 16. Skin intact. Estimated Nutritional Goals BEE in Kcals: Adj wt of IBW Calories/Kcals/Kg AdjBW 137.3lb/62.4kg Kcals Calculated 1560-1872kcal (25-30kcal/kg) Protein: Adj wt of IBW Protein Calculated 44-62g (0.7-1g/kg, renal) Fluid: ml Per Md (dx. CKD III) Nutritional Problem 3. Problem Problem Impaired nutrient utilization related to Etiology CKD III aeb Signs/Symptoms: BUN 61H, creatinine 2.6H 2. Problem Problem Altered nutrition related laboratory values related to Etiology DM aeb Signs/Symptoms: glucose 315 on adm 1. Problem Problem Altered GI function related to Etiology unknown etiology aeb Signs/Symptoms: procedures pending, admitted due to abd pain, currently on clears Intervention/Recommendation Comments 1. When medically feasible to reusme diet, recommend [id number] low sodium. 2. Explained possible diet order to pt, pt appeared unable to comprehend. Unable to provide nutrition education . Expected Outcomes/Goals Expected Outcomes/Goals 1. PO intake to resume and to meet at least 75% of estimated nutritional needs.
--- NOTE | 2017-01-22 14:34 | Diagnostic Imaging Report ---
Abdominal ultrasound HISTORY: Pain The liver appears enlarged. No focal lesions. The gallbladder is not seen consistent with patient's surgical history. No biliary dilatation. Pancreas cannot be seen due to bowel gas. Right kidney appears normal. The left kidney is generous in size (13.1 x 6 0.9 to 7.1 cm). No focal lesions. No hydronephrosis. The spleen appears enlarged at 14.5 cm). No other retroperitoneal or intra-abdominal abnormalities. IMPRESSION: 1. Nonvisualization of the gallbladder consistent with patient's reported surgical history 2. Hepatosplenomegaly
[2017-01-22] MEDS: Levofloxacin 250 mg/50 mL Premix Bag IV SCH (21:00)
[2017-01-23] MEDS: metroNIDAZOLE 500mg/NS 100mL 500 MG/100 ML BAG IV SCH ×3 (05:19→20:37)
[2017-01-23] MEDS: INSULIN ASPART SLIDING SCALE 100 UNITS/ML UNIT SUBQ SCH ×4 (06:43→20:38)
[2017-01-23] MEDS: NIFEdipine 30 mg ER Tab PO SCH (10:27)
[2017-01-23] MEDS: Escitalopram Oxalate 5 mg Tab PO SCH (10:27)
[2017-01-23] MEDS: Enoxaparin 30 mg/0.3 mL 0.3mL Syr SUBQ SCH (10:27)
[2017-01-23] MEDS: Fenofibrate, Micronized 134 mg Cap PO SCH (10:27)
--- NOTE | 2017-01-23 11:55 | Operative Report ---
GI Operative Report - Gastroenterology Procedure:: EGD Indication for procedure:: abdominal pain, dyspepsia, and anemia Procedure consent:: Risk benefits alternatives were d/w. Mentioned bleeding infection, perforation , and disability, cardiopulmonary distress and arrest missed lesions and cancer and need for surgery. Family expressed understanding and provided informed consent. Anesthesia:: MAC Preoperative diagnosis:: Dyspepsia and anemia Postoperative diagnosis:: GE junction at 35 cm gastritis s/p bx and normal duodenum Description of Procedure:: The endoscope was advanced from the mouth into the 2nd portion of the duodenum. The scope was brought back to the stomach and retroflexion was performed. The scope was straightened and then removed. Recommendations:: 1.follow h/h 2.protonix 3.check biopsy 4.unable to perform colonoscopy due to lack of bowel prep
--- NOTE | 2017-01-23 18:37 | General Progress Note ---
Subjective - Review of Systems Service Date: 01/23/17 Subjective: Patient is seen and examined. Patient has no new complaints. Status post EGD findings discussed with the patient's assigned nurse no active bleeding consistent with gastritis. Objective - Results Result Diagrams: 01/22/17 06:05 01/22/17 06:05 Recent Labs: Laboratory Last Values WBC 7.1 Th/cmm (4.8-10.8) 01/22/17 06:05 RBC 3.84 Mil/cmm (3.80-5.10) 01/22/17 06:05 Hgb 10.9 gm/dL (11.7-15.5) L 01/22/17 06:05 Hct 32.7 % (35.0-45.0) L 01/22/17 06:05 MCV 85.3 fl (81-100) 01/22/17 06:05 MCH 28.5 pg (27.0-31.0) 01/22/17 06:05 MCHC Differential 33.3 pg (28.0-36.0) 01/22/17 06:05 RDW 12.2 % (11.5-20.0) 01/22/17 06:05 Plt Count 243 Th/cmm (150-400) 01/22/17 06:05 MPV 7.7 fl 01/22/17 06:05 Neutrophils % 62.5 % (40.0-80.0) 01/22/17 06:05 Lymphocytes % 26.2 % (20.0-50.0) 01/22/17 06:05 Monocytes % 7.5 % (2.0-10.0) 01/22/17 06:05 Eosinophils % 3.3 % (0.0-5.0) 01/22/17 06:05 Basophils % 0.5 % (0.0-2.0) 01/22/17 06:05 PT 10.4 SECONDS (9.5-11.5) 01/20/17 15:57 INR 1.00 (0.5-1.4) 01/20/17 15:57 PTT (Actin FS) 25.0 SECONDS (26.0-38.0) L 01/20/17 15:57 Sodium 136 mEq/L (136-145) 01/22/17 06:05 Potassium 4.3 mEq/L (3.5-5.1) 01/22/17 06:05 Chloride 108 mEq/L (98-107) H 01/22/17 06:05 Carbon Dioxide 25.7 mEq/L (21.0-31.0) 01/22/17 06:05 Anion Gap 6.6 (7.0-16.0) L 01/22/17 06:05 BUN 43 mg/dL (7-25) H 01/22/17 06:05 Creatinine 2.2 mg/dL (0.6-1.2) H 01/22/17 06:05 Est GFR ( Amer) 29.9 ml/min (>90) 01/22/17 06:05 Est GFR (Non-Af Amer) 24.7 ml/min 01/22/17 06:05 BUN/Creatinine Ratio 19.5 01/22/17 06:05 Glucose 195 mg/dL (70-105) H 01/22/17 06:05 POC Glucose 235 MG/DL (70 - 105) H 01/23/17 09:52 Calcium 8.8 mg/dL (8.6-10.3) 01/22/17 06:05 Total Bilirubin 0.3 mg/dL (0.3-1.0) 01/22/17 06:05 AST 19 U/L (13-39) 01/22/17 06:05 ALT 15 U/L (7-52) 01/22/17 06:05 Alkaline Phosphatase 31 U/L (34-104) L 01/22/17 06:05 Troponin I 0.01 ng/mL (0.01-0.05) 01/20/17 15:57 Total Protein 6.3 gm/dL (6.0-8.3) 01/22/17 06:05 Albumin 3.3 gm/dL (3.7-5.3) L 01/22/17 06:05 Globulin 3.0 gm/dL 01/22/17 06:05 Albumin/Globulin Ratio 1.1 (1.0-1.8) 01/22/17 06:05 Triglycerides 419 mg/dL (<150) H 01/20/17 15:57 Cholesterol 255 mg/dL (<200) H 01/20/17 15:57 LDL Cholesterol Direct 136 mg/dL (75-193) 01/20/17 15:57 HDL Cholesterol 31 mg/dL (23-92) 01/20/17 15:57 Amylase 44 U/L (29-103) 01/21/17 06:55 Lipase 36 U/L (11-82) 01/21/17 06:55 TSH 2.64 uIU/ml (0.34-5.60) 01/20/17 15:57 Urine Source CLEAN C 01/20/17 16:40 Urine Color YELLOW 01/20/17 16:40 Urine Clarity CLEAR (CLEAR) 01/20/17 16:40 Urine pH 5.0 01/20/17 16:40 Ur Specific [place] 1.010 (1.005-1.030) 01/20/17 16:40 Urine Protein 30 mg/dL (NEGATIVE) H 01/20/17 16:40 Urine Glucose (UA) 500 mg/dL (NEGATIVE) H 01/20/17 16:40 Urine Ketones NEGATIVE mg/dL (NEGATIVE) 01/20/17 16:40 Urine Blood TRACE (NEGATIVE) 01/20/17 16:40 Urine Nitrate NEGATIVE (NEGATIVE) 01/20/17 16:40 Urine Bilirubin NEGATIVE (NEGATIVE) 01/20/17 16:40 Urine Urobilinogen 0.2 E.U./dL (0.2 - 1.0) 01/20/17 16:40 Ur Leukocyte Esterase NEGATIVE (NEGATIVE) 01/20/17 16:40 Urine RBC 0-2 /hpf (0-5) 01/20/17 16:40 Urine WBC 2-5 /hpf (0-5) 01/20/17 16:40 Ur Epithelial Cells FEW /lpf (FEW) 01/20/17 16:40 Urine Bacteria FEW /hpf (NONE SEEN) 01/20/17 16:40 RPR NONREACTIVE (NONREACTIVE) 01/20/17 15:57 - Physical Exam Vitals and I&O: Vital Signs Temp 98.4 F 01/23/17 16:00 Pulse 84 01/23/17 16:54 Resp 19 01/23/17 16:00 BP 149/87 01/23/17 16:54 Pulse Ox 97 01/23/17 16:00 Intake & Output 01/22/17 01/23/17 01/23/17 18:59 06:59 18:59 Intake Total 860 100 200 Balance 860 100 200 Weight (lbs) 91.172 kg 91.172 kg Intake: Intake, IV Amount 860 100 200 D5-0.45NS 1,000 ml @ 100 760 mls/hr IV .Q10H [facility] Rx#: [id number] metroNIDAZOLE 500mg/NS 100 100 200 100mL 500 mg In 100 ml @ 100 mls/hr IV Q8HR [facility] Rx #:[id number] Other: # Voids 2 1 # Bowel Movements 1 Active Medications: Current Medications Acetaminophen (Tylenol) 650 mg PO Q6HR PRN PRN Reason: PAIN Stop: 03/21/17 19:55 Benazepril HCl (Lotensin) 20 mg PO BID [facility] Stop: 03/22/17 08:59 Last Admin: 01/23/17 16:54 Dose: 20 mg Carbamazepine (Tegretol) 200 mg PO TID [facility] PRN Reason: Protocol Stop: 03/21/17 20:59 Last Admin: 01/23/17 14:38 Dose: 200 mg Clonidine HCl (Catapres) 0.1 mg PO TID [facility] Stop: 03/21/17 20:59 Last Admin: 01/23/17 14:38 Dose: 0.1 mg Clopidogrel Bisulfate (Plavix) 75 mg PO DAILY [facility] Stop: 03/22/17 08:59 Last Admin: 01/23/17 10:26 Dose: Not Given Donepezil HCl (Aricept) 5 mg PO HS [facility] Stop: 03/21/17 20:59 Last Admin: 01/22/17 21:11 Dose: 5 mg Enoxaparin Sodium (Lovenox) 30 mg SUBQ DAILY [facility] Stop: 03/22/17 08:59 Last Admin: 01/23/17 10:27 Dose: Not Given Escitalopram Oxalate (Lexapro) 2.5 mg PO DAILY [facility] PRN Reason: Protocol Stop: 03/22/17 08:59 Last Admin: 01/23/17 10:27 Dose: Not Given Fenofibrate (Tricor) 134 mg PO DAILY [facility] Stop: 03/22/17 08:59 Last Admin: 01/23/17 10:27 Dose: Not Given Dextrose/Sodium Chloride (D5-0.45ns) 1,000 mls @ 100 mls/hr IV .Q10H [facility] Stop: 03/21/17 19:59 Last Admin: 01/22/17 12:48 Dose: 100 mls/hr Metronidazole (Flagyl) 500 mg in 100 mls @ 100 mls/hr IV Q8HR [facility] Stop: 03/21/17 20:59 Last Infusion: 01/23/17 17:15 Dose: Infused Levofloxacin (Levaquin Pb) 250 mg in 50 mls @ 50 mls/hr IV Q24HR [facility] Stop: 03/22/17 20:59 Last Admin: 01/22/17 21:00 Dose: 50 mls/hr Insulin Aspart (Novolog Insulin Sliding Scale) 0 units SUBQ ACHS [facility] PRN Reason: Protocol Stop: 03/21/17 20:59 Last Admin: 01/23/17 17:16 Dose: 4 units Latanoprost (Xalatan 0.005% [facility]) 1 drop EACH EYE QPM [facility] Stop: 03/22/17 16:59 Last Admin: 01/23/17 16:54 Dose: 1 drop Lorazepam (Ativan) 1 mg IVP Q4H PRN; Protocol PRN Reason: Anxiety/Agitation Stop: 03/21/17 19:47 Metoprolol Succinate (Toprol Xl) 50 mg PO DAILY [facility] Stop: 03/22/17 08:59 Last Admin: 01/23/17 10:27 Dose: Not Given Miscellaneous (Clinical Monitoring) 1 ea MC DAILY PRN PRN Reason: RENAL Stop: 03/22/17 09:03 Morphine Sulfate (Morphine) 2 mg IVP Q4H PRN PRN Reason: SEVERE PAIN Stop: 03/22/17 11:14 Last Admin: 01/21/17 11:29 Dose: 2 mg Nifedipine (Procardia Xl) 90 mg PO DAILY [facility] Stop: 03/22/17 08:59 Last Admin: 01/23/17 10:27 Dose: Not Given Ondansetron HCl (Zofran) 4 mg IVP Q6H PRN PRN Reason: Nausea / Vomiting Stop: 03/21/17 19:47 Last Admin: 01/21/17 11:29 Dose: 4 mg Pantoprazole Sodium (Protonix) 40 mg IVP DAILY [facility] Stop: 03/25/17 08:59 Quetiapine Fumarate (Seroquel) 25 mg PO HS [facility] PRN Reason: Protocol Stop: 03/21/17 20:59 Last Admin: 01/22/17 21:11 Dose: 25 mg General: Alert, No acute distress HEENT: Atraumatic, PERRLA Neck: Supple Cardiovascular: Regular rate, Normal S1, Normal S2 Lungs: Clear to auscultation Abdomen: Bowel sounds, Soft Extremities: Clubbing Neurological: Other (right-sided weakness with expressive aphasia and dysphagia. ) Skin: Rash Psych/Mental Status: Other (labile mood) - Procedures Procedures: Procedures Procedure Code Date EGD BIOPSY SINGLE/MULTIPLE 57399 12/29/14 ESOPHAGOGASTRODUODENOSCOPY [EGD] W/CLOSED BIOPSY 45.16 12/29/14 Assessment/Plan - Problem List Patient Problems: All Active Problems RIGHT UPPER QUADRANT PAIN (Acute) Agitation (Acute) R45.1 Behavior problem (Acute) Psychosis (Acute) F29 Uncontrolled hypertension (Acute) I10 - Assessment Assessment: Current Active Problems Problem Status Onset RIGHT UPPER QUADRANT PAIN Acute Right upper quadrent abdominal pain most likely due to hepatosplenomegaly. CVA with left sided weakness. Gastritis Diabetes mellitus. Psych Disorder DJD CKD 3 Hypertension S/P cholecystectomy Fall risk UTI - Plan Plan: Discharge to care home. CPOE done. MAR and reconciled and discussed with RN. Nutritional Asmnt/Malnutr-PDOC - Dietary Evaluation Malnutrition Findings (Please click <Entered> for more info): Nutritional Asmnt/Malnutrition Start: 01/21/17 16: 15 Text: Status: Complete Freq: Document 01/21/17 16:15 GSUN (Rec: 01/21/17 16:41 GSUN [email or web address]) Nutritional Asmnt/Malnutrition Patient General Information Nutritional Screening Consult Diagnosis Abd pain, CVA left sided weakness, DM, CKD 3, psych disorder Pertinent Medical Hx/Surgical Hx HTN, COPD, CVA, GERD, dementia , osteoarthritis, muscle atrophy, chronic renal failure , DM, hyperthyroidism, cholecystectomy Subjective Information 56 [address] consult for glucose >180. Pt was pleasant, but a questionable/ poor historian. spoke to SHAILESH Garcia, pt is currently on clear liquid, NPO after midnight for possible procedures tomorrow. Explained to pt nutrition plan or care, CCHO low sodium diet when diet resumed, pt appeared pleasant but confused. Teeth intact. Pt report usually good appetite. No wasting noted. Pt does not know UBW. CBW 204. 3lb via bedscale. Current Diet Order/ Nutrition Support Clear liquid Pertinent Medications D5-0.45ns, Novolog, Levaquin, Flagyl, Morphine, Zofran, Seroquel Pertinent Labs 01/21: BUN 61H, creatinine 2.6H , glucose 191H Nutritional Hx/Data Height 1.6 m Height (Calculated Centimeters) 160.0 Current Weight (lbs) 92.669 kg Weight (Calculated Kilograms) 92.7 Weight (Calculated Grams) 23836.9 [place] Body Weight 115 Weight Status Obese GI Symptoms Skin Integrity/Comment: José Luis 16. Skin intact. Estimated Nutritional Goals BEE in Kcals: Adj wt of IBW Calories/Kcals/Kg AdjBW 137.3lb/62.4kg Kcals Calculated 1560-1872kcal (25-30kcal/kg) Protein: Adj wt of IBW Protein Calculated 44-62g (0.7-1g/kg, renal) Fluid: ml Per Md (dx. CKD III) Nutritional Problem 3. Problem Problem Impaired nutrient utilization related to Etiology CKD III aeb Signs/Symptoms: BUN 61H, creatinine 2.6H 2. Problem Problem Altered nutrition related laboratory values related to Etiology DM aeb Signs/Symptoms: glucose 315 on adm 1. Problem Problem Altered GI function related to Etiology unknown etiology aeb Signs/Symptoms: procedures pending, admitted due to abd pain, currently on clears Intervention/Recommendation Comments 1. When medically feasible to reusme diet, recommend [id number] low sodium. 2. Explained possible diet order to pt, pt appeared unable to comprehend. Unable to provide nutrition education . Expected Outcomes/Goals Expected Outcomes/Goals 1. PO intake to resume and to meet at least 75% of estimated nutritional needs.
--- NOTE | 2017-01-23 18:44 | Discharge Summary ---
General Discharge Summary - Discharge Summary Date of Admission: 01/20/17 Admitting Diagnosis: right upper quadrant abdominal pain Patient Problems: All Active Problems RIGHT UPPER QUADRANT PAIN (Acute) Agitation (Acute) R45.1 Behavior problem (Acute) Psychosis (Acute) F29 Uncontrolled hypertension (Acute) I10 Discharge Date: 01/23/17 Discharge Diagnosis: a right upper quadrant pain due to hepatosplenomegaly. Gastritis. CVA, Laboratory Findings: Laboratory Tests 01/20/17 01/21/17 01/21/17 22:44 05:44 06:55 WBC 8.6 RBC 3.79 L Hgb 10.8 L Hct 32.3 L MCV 85.3 MCH 28.5 MCHC Differential 33.4 RDW 12.5 Plt Count 225 MPV 7.9 Neutrophils % 63.4 Lymphocytes % 24.5 Monocytes % 7.8 Eosinophils % 3.3 Basophils % 1.0 Sodium Potassium Chloride Carbon Dioxide Anion Gap BUN Creatinine Est GFR ( Amer) Est GFR (Non-Af Amer) BUN/Creatinine Ratio Glucose POC Glucose 163 H 236 H Calcium Total Bilirubin AST ALT Alkaline Phosphatase Total Protein Albumin Globulin Albumin/Globulin Ratio Amylase Lipase 01/21/17 01/21/17 01/21/17 06:55 11:33 17:10 WBC RBC Hgb Hct MCV MCH MCHC Differential RDW Plt Count MPV Neutrophils % Lymphocytes % Monocytes % Eosinophils % Basophils % Sodium 136 Potassium 4.5 Chloride 107 Carbon Dioxide 24.7 Anion Gap 8.8 BUN 61 H Creatinine 2.6 H Est GFR ( Amer) 24.7 Est GFR (Non-Af Amer) 20.4 BUN/Creatinine Ratio 23.5 Glucose 191 H POC Glucose 229 H 184 H Calcium 8.9 Total Bilirubin 0.2 L AST 14 ALT 13 Alkaline Phosphatase 30 L Total Protein 6.2 Albumin 3.4 L Globulin 2.8 Albumin/Globulin Ratio 1.2 Amylase 44 Lipase 36 01/21/17 01/22/17 01/22/17 19:55 06:05 06:05 WBC 7.1 RBC 3.84 Hgb 10.9 L Hct 32.7 L MCV 85.3 MCH 28.5 MCHC Differential 33.3 RDW 12.2 Plt Count 243 MPV 7.7 Neutrophils % 62.5 Lymphocytes % 26.2 Monocytes % 7.5 Eosinophils % 3.3 Basophils % 0.5 Sodium 136 Potassium 4.3 Chloride 108 H Carbon Dioxide 25.7 Anion Gap 6.6 L BUN 43 H Creatinine 2.2 H Est GFR ( Amer) 29.9 Est GFR (Non-Af Amer) 24.7 BUN/Creatinine Ratio 19.5 Glucose 195 H POC Glucose 197 H Calcium 8.8 Total Bilirubin 0.3 AST 19 ALT 15 Alkaline Phosphatase 31 L Total Protein 6.3 Albumin 3.3 L Globulin 3.0 Albumin/Globulin Ratio 1.1 Amylase Lipase 01/22/17 01/22/17 01/22/17 06:41 12:05 16:47 WBC RBC Hgb Hct MCV MCH MCHC Differential RDW Plt Count MPV Neutrophils % Lymphocytes % Monocytes % Eosinophils % Basophils % Sodium Potassium Chloride Carbon Dioxide Anion Gap BUN Creatinine Est GFR ( Amer) Est GFR (Non-Af Amer) BUN/Creatinine Ratio Glucose POC Glucose 206 H 254 H 157 H Calcium Total Bilirubin AST ALT Alkaline Phosphatase Total Protein Albumin Globulin Albumin/Globulin Ratio Amylase Lipase 01/22/17 01/22/17 01/23/17 21:16 23:32 05:37 WBC RBC Hgb Hct MCV MCH MCHC Differential RDW Plt Count MPV Neutrophils % Lymphocytes % Monocytes % Eosinophils % Basophils % Sodium Potassium Chloride Carbon Dioxide Anion Gap BUN Creatinine Est GFR ( Amer) Est GFR (Non-Af Amer) BUN/Creatinine Ratio Glucose POC Glucose 212 H 164 H 206 H Calcium Total Bilirubin AST ALT Alkaline Phosphatase Total Protein Albumin Globulin Albumin/Globulin Ratio Amylase Lipase 01/23/17 01/23/17 06:22 09:52 WBC RBC Hgb Hct MCV MCH MCHC Differential RDW Plt Count MPV Neutrophils % Lymphocytes % Monocytes % Eosinophils % Basophils % Sodium Potassium Chloride Carbon Dioxide Anion Gap BUN Creatinine Est GFR ( Amer) Est GFR (Non-Af Amer) BUN/Creatinine Ratio Glucose POC Glucose 190 H 235 H Calcium Total Bilirubin AST ALT Alkaline Phosphatase Total Protein Albumin Globulin Albumin/Globulin Ratio Amylase Lipase Hospital Course: 56-year-old resident of [facility] emergency room for evaluation of right upper quadrant abdominal pain with nausea. Patient was seen by MICHELE Germain and subsequently admitted to the hospital for further treatment. Please refer to my medical H&P for further information. During the hospitalization patient was placed on clear liquid diet emperic IV antibiotic along with GI consultation was requested. Patient was placed on proton pump inhibitor. Abdominal ultrasound was done which revealed patient had a previously done cholecystectomy with evidence of hepatosplenomegaly. Patient did undergo upper endoscopy which revealed patient had gastritis. Patient was placed on the full liquid diet which was advanced to as tolerated. During the stay patient's chronic medical problems were managed appropriately. Once patient was cleared by the senior consultant and patient symptoms were resolved this is an was medications can be discharged back to [place] [facility]. It was suspected of her right upper quadrant pain due to hepatosplenomegaly. Patient nneds to have better control of her diabetes which will be managed in a [place] [facility]. Treatment: Upper endoscopy Condition at Discharge: Stable Disposition: XFR/INPATIENT REHAB FAC Home Medications: Home Medication Medication Instructions Recorded Type carBAMazepine [TEGretol*] 200 mg PO TID #0 tab 10/24/14 Rx Benazepril [Lotensin] 20 mg PO BID 11/19/14 History cloNIDine HCl [Catapres] 0.1 mg PO TID 11/19/14 History Insulin Aspart Sliding Scale See Protocol SUBQ ACHS 11/22/15 History [NovoLOG INSULIN SLIDING SCALE] Nifedipine [Procardia Xl*] 90 mg PO DAILY 11/22/15 History Atorvastatin Calcium [Lipitor] 40 mg PO HS #0 tab 12/01/15 Rx Clopidogrel [Plavix] 75 mg PO DAILY #0 tab 12/01/15 Rx Metoprolol Succinate [Toprol Xl] 50 mg PO DAILY #0 12/01/15 Rx Escitalopram Oxalate [Lexapro] 2.5 mg PO DAILY 01/17/17 History Acetaminophen [Tylenol] 650 mg PO Q6HR PRN 01/20/17 History Cranberry Fruit [Cranberry] 450 mg PO DAILY 01/20/17 History Donepezil Hcl [Aricept] 5 mg PO HS 01/20/17 History Famotidine [Pepcid] 20 mg PO BID 01/20/17 History Fenofibrate,Micronized 134 mg PO DAILY 01/20/17 History [Fenofibrate] Ferrous Sulfate [Iron] 325 mg PO DAILY 01/20/17 History Insulin Detemir [Levemir Insulin] 15 units SUBQ DAILY 01/20/17 History Latanoprost 0.005% Ophth Soln 1 drop EACH EYE QPM 01/20/17 History [Xalatan 0.005% Ophth Soln] Multivitamin w/ Minerals 1 tab PO DAILY 01/20/17 History [Theragran M] QUEtiapine Fumarate [SEROquel] 25 mg PO HS 01/20/17 History Inpatient Medications: Current Medications Acetaminophen (Tylenol) 650 mg PO Q6HR PRN PRN Reason: PAIN Stop: 03/21/17 19:55 Benazepril HCl (Lotensin) 20 mg PO BID [facility] Stop: 03/22/17 08:59 Last Admin: 01/23/17 16:54 Dose: 20 mg Carbamazepine (Tegretol) 200 mg PO TID [facility] PRN Reason: Protocol Stop: 03/21/17 20:59 Last Admin: 01/23/17 14:38 Dose: 200 mg Clonidine HCl (Catapres) 0.1 mg PO TID [facility] Stop: 03/21/17 20:59 Last Admin: 01/23/17 14:38 Dose: 0.1 mg Clopidogrel Bisulfate (Plavix) 75 mg PO DAILY [facility] Stop: 03/22/17 08:59 Last Admin: 01/23/17 10:26 Dose: Not Given Donepezil HCl (Aricept) 5 mg PO HS [facility] Stop: 03/21/17 20:59 Last Admin: 01/22/17 21:11 Dose: 5 mg Enoxaparin Sodium (Lovenox) 30 mg SUBQ DAILY [facility] Stop: 03/22/17 08:59 Last Admin: 01/23/17 10:27 Dose: Not Given Escitalopram Oxalate (Lexapro) 2.5 mg PO DAILY [facility] PRN Reason: Protocol Stop: 03/22/17 08:59 Last Admin: 01/23/17 10:27 Dose: Not Given Fenofibrate (Tricor) 134 mg PO DAILY [facility] Stop: 03/22/17 08:59 Last Admin: 01/23/17 10:27 Dose: Not Given Dextrose/Sodium Chloride (D5-0.45ns) 1,000 mls @ 100 mls/hr IV .Q10H [facility] Stop: 03/21/17 19:59 Last Admin: 01/22/17 12:48 Dose: 100 mls/hr Metronidazole (Flagyl) 500 mg in 100 mls @ 100 mls/hr IV Q8HR [facility] Stop: 03/21/17 20:59 Last Infusion: 01/23/17 17:15 Dose: Infused Levofloxacin (Levaquin Pb) 250 mg in 50 mls @ 50 mls/hr IV Q24HR [facility] Stop: 03/22/17 20:59 Last Admin: 01/22/17 21:00 Dose: 50 mls/hr Insulin Aspart (Novolog Insulin Sliding Scale) 0 units SUBQ ACHS [facility] PRN Reason: Protocol Stop: 03/21/17 20:59 Last Admin: 01/23/17 17:16 Dose: 4 units Latanoprost (Xalatan 0.005% Ophth Soln) 1 drop EACH EYE QPM [facility] Stop: 03/22/17 16:59 Last Admin: 01/23/17 16:54 Dose: 1 drop Lorazepam (Ativan) 1 mg IVP Q4H PRN; Protocol PRN Reason: Anxiety/Agitation Stop: 03/21/17 19:47 Metoprolol Succinate (Toprol Xl) 50 mg PO DAILY [facility] Stop: 03/22/17 08:59 Last Admin: 01/23/17 10:27 Dose: Not Given Miscellaneous (Clinical Monitoring) 1 ea MC DAILY PRN PRN Reason: RENAL Stop: 03/22/17 09:03 Morphine Sulfate (Morphine) 2 mg IVP Q4H PRN PRN Reason: SEVERE PAIN Stop: 03/22/17 11:14 Last Admin: 01/21/17 11:29 Dose: 2 mg Nifedipine (Procardia Xl) 90 mg PO DAILY [facility] Stop: 03/22/17 08:59 Last Admin: 01/23/17 10:27 Dose: Not Given Ondansetron HCl (Zofran) 4 mg IVP Q6H PRN PRN Reason: Nausea / Vomiting Stop: 03/21/17 19:47 Last Admin: 01/21/17 11:29 Dose: 4 mg Pantoprazole Sodium (Protonix) 40 mg IVP DAILY [facility] Stop: 03/25/17 08:59 Quetiapine Fumarate (Seroquel) 25 mg PO HS [facility] PRN Reason: Protocol Stop: 03/21/17 20:59 Last Admin: 01/22/17 21:11 Dose: 25 mg Consults and Follow-Up: Kash Jaffe [Primary Care Provider] - Instructions: Abdominal Pain, [id number], Hypertension, [id number], Dementia
[2017-01-23] MEDS: Levofloxacin 250 mg/50 mL Premix Bag IV SCH (20:37)
--- NOTE | 2017-01-24 11:43 | Pathology Report ---
Pathology Report - Pathology Pathology Report: SPECIMEN #[id number] PHYSICIAN: Dr. Sena Jaffe SURGEON: Dr. Maureen Talbert SPECIMEN COLLECTION DATE: 01/23/2017 Specimen Description: Biopsy of antrum Report: Gross Description: Received in formalin is a single fragment of connor soft tissue measuring 0.3 cm in greatest dimension. Totally submitted in one cassette. Microscopic Description: The histologic sections show gastric mucosa with chronic inflammation present consisting of lymphocytes and plasma cells. The Giemsa stain shows no evidence for Helicobacter pylori. Diagnosis: 1. Chronic gastritis, antrum biopsy. 2. The Giemsa stain is negative for Helicobacter pylori. Navdeep Harris M.D. [id number]
== END 2017-01-23 23:08 | DRG 442 ==
LOC: ER 15:33 → MSI 20:14
PROVIDERS: ADMIT Internal Medicine; ATTEND Internal Medicine
PROC: 0DB68ZX Excision of Stomach, Via Natural or Artificial Opening Endoscopic, Diagnostic (ICD-10-PCS; principal; 2017-01-23)
DX: R16.2 Hepatomegaly with splenomegaly, not elsewhere classified (principal); I69.354 Hemiplegia and hemiparesis following cerebral infarction affecting left non-dominant side; E11.22 Type 2 diabetes mellitus with diabetic chronic kidney disease; F03.90 Unspecified dementia, unspecified severity, without behavioral disturbance, psychotic disturbance, mood disturbance, and anxiety; N39.0 Urinary tract infection, site not specified; K29.70 Gastritis, unspecified, without bleeding; N18.3 Chronic kidney disease, stage 3 (moderate); E11.65 Type 2 diabetes mellitus with hyperglycemia; F29 Unspecified psychosis not due to a substance or known physiological condition; M19.90 Unspecified osteoarthritis, unspecified site; I12.9 Hypertensive chronic kidney disease with stage 1 through stage 4 chronic kidney disease, or unspecified chronic kidney disease; J44.9 Chronic obstructive pulmonary disease, unspecified; K21.9 Gastro-esophageal reflux disease without esophagitis; Z66 Do not resuscitate; E86.0 Dehydration; K59.00 Constipation, unspecified; M62.50 Muscle wasting and atrophy, not elsewhere classified, unspecified site; E05.90 Thyrotoxicosis, unspecified without thyrotoxic crisis or storm; D64.9 Anemia, unspecified; Z90.49 Acquired absence of other specified parts of digestive tract; Z91.81 History of falling; Z83.3 Family history of diabetes mellitus; Z88.5 Allergy status to narcotic agent; Z88.1 Allergy status to other antibiotic agents
CPT/HCPCS: 36415-UA; 71010-TC; 76700-TC; 80053-TC; 80061-TC; 81001-TC; 82150-TC; 82948-90; 83036-90; 83690-TC; 84443-TC; 84484-TC; 85025-TC; 85610-TC; 85730-TC; 86592-TC; 87086-90; 88305-90; 88312-90; 90799; 93005; J0696; J1650; J1815; J1956; J2405; J2704; J7030; Z7610

== ENCOUNTER 2017-05-09 18:33 | Inpatient (IN) | payer MEDICARE, MEDICAID ==
[2017-05-09 19:09] LABS: % BASOPHILS 0.7 % (0.0-2.0); % EOSINOPHILS 2.9 % (0.0-5.0); % LYMPHOCYTES 21.2 % (20.0-50.0); % MONOCYTES 7.5 % (2.0-10.0); % NEUTROPHILS 67.7 % (40.0-80.0); HEMATOCRIT 33.5 % (41.0-60); HEMOGLOBIN 11.3 gm/dL (12-16); MEAN CELL VOLUME 85.4 fl (81-100); MEAN CORPUSCULAR HEMOGLOBIN 28.8 pg (27.0-31.0); MEAN CORPUSCULAR HGB CONC 33.8 pg (28.0-36.0); NEUTROPHILE ABSOLUTE 7.2 Th/cmm (1.8-8.0); PLATELET COUNT 251 Th/cmm (150-400); RED BLOOD COUNT 3.92 Mil/cmm (3.80-5.10); RED CELL DISTRIBUTION WIDTH 12.5 % (11.5-20.0); WHITE BLOOD COUNT 10.6 Th/cmm (4.8-10.8)
[2017-05-09 19:26] LABS: ALB/GLOB RATIO 1.1 (1.0-1.8); ANION GAP 10.9 (7.0-16.0); BILIRUBIN,TOTAL 0.3 mg/dL (0.3-1.0); BUN/CREATININE RATIO 19.6; CALCIUM SERUM 8.9 mg/dL (8.6-10.3); CARBON DIOXIDE 25.7 mEq/L (21.0-31.0); CREATININE - SERUM 2.4 mg/dL (0.6-1.2); POTASSIUM SERUM 4.6 mEq/L (3.5-5.1)
[2017-05-09] MEDS ORDERED: Aspirin 325 mg EC PO ONE (20:49)
[2017-05-09 23:56] VITALS: BP 150/74
--- NOTE | 2017-05-10 01:17 | ER Physician Documentation ---
DATE OF SERVICE: 05/09/2017 A 56-year-old female patient. Weight is 102.058 kilograms. Body surface area 2.10 square meter. The patient was seen by her primary care physician who might be attached to this hospital and initially was seen by Dr. Rod. The patient has some pain, the pain into the jaw and the left tooth area. I see from the notes from the nurses and from the other hospital that the patient has been given antibiotics. She pointed me out that she has some pain in the left tooth area and she does not say where she is. She does not know who is she. There is no psych beds available. We will admit the patient into telemetry or med/surg floor. I will ask Gomez, our nurse to call the patient's primary care physician who sent the patient here so that we can admit the patient. We just got the lab. I saw the lab, it is in the computer showing white count to be high at 10.6, hemoglobin 11.3, hematocrit 33.5, platelet count 251,000, neutrophils 67.7, lymphocytes 21.2. Electrolytes showing sodium 134, potassium 4.6, chloride 102, CO2 25.7, BUN is 47, creatinine is 2.4, glucose is 256, calcium is 8.9, bilirubin is 0.3. AST 18, ALT is 420, alkaline phosphatase 42. Troponin is less than 0.1, total protein is 6.7, albumin 3.5. Triglycerides are 530. Cholesterol is 261, LDL is 130, HDL is 31. The patient's working diagnosis at the present moment is that the patient has an infected tooth. She has psych problem. She has probably dementia and the Medicaid she came from one of the I believe [facility], the patient and the medication she was on included donepezil, Aricept 5 mg 1 tablet at bedtime, atorvastatin 40 mg at bedtime. I believe this should be increased to 80 mg a day, benazepril 20 mg 1 tablet b.i.d. because the blood pressure is high at 170 by close to 90. Sinus rhythm, 97 heart rate. Nifedipine XR, metoprolol, clonidine, multivitamin. All these orders will be put into the thing. The patient is on fenofibrate, latanoprost, carbamazepine 200 mg t.i.d., cranberry pill 450 mg 1 p.o. q.i.d. and the patient is on ferrous sulfate, Protonix, clopidogrel, Januvia. I will see if there is any x-ray report has been done, so I can report that unless might be Dr. has reported and Gomez, our nurse will call the daughter and admit the patient. In the meantime, I will put some admitting orders for the time being and admit this patient. JOB# [id number]
[2017-05-10 06:36] LABS: % BASOPHILS 0.7 % (0.0-2.0); % EOSINOPHILS 3.7 % (0.0-5.0); % LYMPHOCYTES 22.1 % (20.0-50.0); % MONOCYTES 7.6 % (2.0-10.0); % NEUTROPHILS 65.9 % (40.0-80.0); HEMATOCRIT 34.3 % (41.0-60); HEMOGLOBIN 11.5 gm/dL (12-16); MEAN CELL VOLUME 86.5 fl (81-100); MEAN CORPUSCULAR HGB CONC 33.5 pg (28.0-36.0); MEAN PLATELET VOLUME 8.5 fl; NEUTROPHILE ABSOLUTE 6.4 Th/cmm (1.8-8.0); PLATELET COUNT 232 Th/cmm (150-400); RED BLOOD COUNT 3.97 Mil/cmm (3.80-5.10); RED CELL DISTRIBUTION WIDTH 12.4 % (11.5-20.0); WHITE BLOOD COUNT 9.7 Th/cmm (4.8-10.8)
--- NOTE | 2017-05-10 07:57 | ED Physician Chart ---
ED Chief Complaint/HPI - Patient Information Date Seen:: 05/09/17 Time Seen:: 17:30 Chief Complaint:: Left jaw pain, left shoulder pain, left chest pain History of Present Illness:: 56 yo female with dementia, depression and multiple other conditions, who is a resident at [facility], was brought to the ER for evaluation of left jaw pain for one day. At the ER, the patient claimed to have pain of left jaw, left neck, left shoulder, left chest, left upper extremity. The patient is oriented to self only. She appeared in no acute stress in the ER. The patient did have multiple dental caries and missing molars. Allergies:: Allergies Allergy/AdvReac Type Severity Reaction Status Date / Time codeine AdvReac Verified 01/17/17 11:25 Penicillins [PCN] AdvReac Verified 01/17/17 11:25 ED Review of Systems - Review of Systems General/Constitutional: No fever, No chills, Weakness Skin: No skin lesions Head: No headache Eyes: No loss of vision ENT: Other (jaw pain) Neck: Neck pain, No mass noted Cardio Vascular: Chest pain Pulmonary: No SOB GI: No nausea, No vomiting G/U: No frequency Musculoskeletal: Other (left shoulder and left upper extremity pain) Psychiatric: Depression, Other (Dementia) ED Past Medical History - Past Medical History Obtainable: No (From patient's records) Past Medical History: DM, CVA/TIA, Dyslipidemia, Dementia, Other (CKD, Gastritis , Difficulty walking, Weakness, Anemia) Social History: Non Smoker, No Alcohol, No Drug Use Surgical History: None Psychiatricy History: Depression, Dementia Family Medical History - Family Member Mother History Unknown: Yes Ethnicity: Unknown Living Status: Unknown Hx Family Cancer: (UNKNOWN) Hx Family Coronary Artery Disease: (UNKNOWN) Hx Family Congestive Heart Failure: (UNKNOWN) Hx Family Hypertension: (UNKNOWN) Hx Family Stroke: (UNKNOWN) Hx Family Diabetes: (UNKNOWN) Hx Family Seizures: (UNKNOWN) Hx Family Dementia: (UNKNOWN) Hx Family AIDS: (UNKNOWN) Hx Family COPD: (UNKNOWN) Hx Family Hepatitis: (UNKNOWN) Hx Family Psychiatric Problems: (UNKNOWN) Hx Family Tuberculosis: (UNKNOWN) Other Medical History: UNKNOWN ED Physical Exam - Physical Examination General/Constitutional: Awake, Alert Other Gen/Cons comments:: Oriented to self only. Follow command Head: Atraumatic Eyes: PERRL, EOMI Skin: No rash, No skin lesions ENMT: Nasal exam nl Other ENMT comments:: Multiple dental caries and missing molars. TMJ joints no apparent dislocation or abnormal movement Neck: No mass Respiratory: Clear to Auscultation, No Wheeze/Rhonchi/Rales Cardio Vascular: RRR, No murmur, gallop, rubs, NL S1 S2 GI: No tenderness/rebounding/guarding Extremities: Full ROM Other Neuro/Psych comments:: No significant motor weakness ED Labs/Radiology/EKG Results - Lab Results Results: Laboratory Tests 05/09/17 05/09/17 05/09/17 19:02 19:02 19:02 WBC 10.6 D RBC 3.92 Hgb 11.3 L Hct 33.5 L MCV 85.4 MCH 28.8 MCHC Differential 33.8 RDW 12.5 Plt Count 251 MPV 8.0 Neutrophils % 67.7 Lymphocytes % 21.2 Monocytes % 7.5 Eosinophils % 2.9 Basophils % 0.7 Sodium 134 L Potassium 4.6 Chloride 102 Carbon Dioxide 25.7 Anion Gap 10.9 BUN 47 H Creatinine 2.4 H Est GFR ( Amer) 27.1 Est GFR (Non-Af Amer) 22.4 BUN/Creatinine Ratio 19.6 Glucose 256 H Hemoglobin A1c % Calcium 8.9 Magnesium Total Bilirubin 0.3 AST 18 ALT 20 Alkaline Phosphatase 42 Troponin I B-Natriuretic Peptide 58.5 Total Protein 6.7 Albumin 3.5 L Globulin 3.2 Albumin/Globulin Ratio 1.1 Triglycerides 530 H Cholesterol 261 H LDL Cholesterol Direct 130 HDL Cholesterol 31 05/09/17 05/09/17 05/09/17 19:02 19:02 19:02 WBC RBC Hgb Hct MCV MCH MCHC Differential RDW Plt Count MPV Neutrophils % Lymphocytes % Monocytes % Eosinophils % Basophils % Sodium Potassium Chloride Carbon Dioxide Anion Gap BUN Creatinine Est GFR ( Amer) Est GFR (Non-Af Amer) BUN/Creatinine Ratio Glucose Hemoglobin A1c % 8.4 H Calcium Magnesium 1.9 Total Bilirubin AST ALT Alkaline Phosphatase Troponin I < 0.01 L B-Natriuretic Peptide Total Protein Albumin Globulin Albumin/Globulin Ratio Triglycerides Cholesterol LDL Cholesterol Direct HDL Cholesterol ED Assessment - Assessment General Assessment: 56 yo female has dementia and claimed left jaw pain, left neck pain, left chest pain and pain in left upper extremity. The differential diagnosis included dental caries, acute coronary syndrome to be ruled out, cervical radiculopathy to be ruled out. Critical Care Time: 30 min Excludes all billable procedures: Yes This condition life threatening/high prob of deterioration: No Assessment/Comments:: CBC, CMP, Trop I, BNP, UA, CXR, EKG ED Septic Shock - . Is Septic Shock (SBP<90, OR Lactate>4 mmol\L) present?: No ED Reassessment (Disposition) - Reassessment Reassessment Condition:: Unchanged - Patient Disposition Discharge/Transfer:: Acute Care w/in this hosp ED Discharge Plan - Patient Disposition Admit/Discharge/Transfer: Acute Care w/in this hosp
--- NOTE | 2017-05-10 09:07 | Diagnostic Imaging Report ---
Portable chest x-ray HISTORY: Pain There is a poor inspiration. The heart size appears somewhat generous. No focal pulmonary processes. No hilar or mediastinal abnormalities. IMPRESSION: 1. No acute focal pulmonary processes 2. Question somewhat generous overall heart size
[2017-05-10] MEDS ORDERED: INSULIN ASPART, RECOMBINANT 100 UNITS/ML SUBQ SCH (16:30)
[2017-05-10] MEDS: INSULIN ASPART SLIDING SCALE 100 UNITS/ML UNIT SUBQ SCH ×2 (17:30→20:46)
--- NOTE | 2017-05-10 22:07 | History & Physical ---
ADMIT DATE: PATIENT IDENTIFICATION: A 56-year-old female. CHIEF COMPLAINT: Chest pain, neck pain, jaw pain, leg pain intermittent for last 3 days. HISTORY OF PRESENT ILLNESS: A 56-year-old female. She resides at group home, has history of diabetes, hypertension, hyperlipidemia, history of CVA with expressive aphasia and left-sided weakness, started to complain about chest pain and intermittent jaw pain, leg pain and abdominal pain on and off. She was given pain medication with no improvement. Upon further questioning by the nursing staff, it was noted that she was having chest pain with radiation to the neck as well as left upper extremity. The patient continues to have symptoms yesterday at least 6-8 times within 2 hours, so the patient was sent to Emergency Room. The patient was evaluated by Emergency Room MD and subsequently admitted to the hospital for further treatment. The patient has multiple medical problems and her history is pretty unreliable. PAST MEDICAL HISTORY: Remarkable for: 1. Diabetes. 2. Hypertension. 3. Hyperlipidemia. 4. CVA. 5. Left-sided weakness. 6. DJD. 7. Expressive aphasia. 8. GERD. MEDICATIONS AT HOME: Tegretol, benazepril, clonidine, sliding scale insulin, nifedipine, atorvastatin, Plavix, fenofibrate, metoprolol, Lexapro, Aricept, famotidine, Levemir insulin, eyedrops, Seroquel. ALLERGIES: The patient is allergic to codeine and penicillin. SOCIAL HISTORY: She lives in a group home. No smoking, alcohol or drug use. FAMILY MEDICAL HISTORY: Unavailable. REVIEW OF SYSTEMS: Tried to get a meaningful history, but unsuccessful due to her expressive aphasia as well as underlying illness. PHYSICAL EXAMINATION: GENERAL: The patient is alert, awake, lying in the bed without any acute distress. VITAL SIGNS: Temperature 97.4, pulse is 65, respiratory rate 18, blood pressure 160/86. SKIN: Warm to touch. HEENT: Normocephalic, atraumatic. Extraocular muscles are intact. Tongue was pink and coated. Poor dentition noted. No oral lesion. No exudate. No sinus tenderness. NECK: Supple. No JVD. No hepatojugular reflex. No lymphadenopathy, thyromegaly or carotid bruit. HEART: Both heart sounds are regular. Grade 2/6 systolic murmur noted. CHEST: Lung equal in expansion. No wheezing. No crackles. ABDOMEN: Soft. No guarding. No rigidity. Liver, spleen palpable. No palpable mass. EXTREMITIES: No edema, no cyanosis. NEUROLOGIC: Alert, awake, follows commands. Right-sided weakness noted with spasticity in the right side. AVAILABLE DIAGNOSTIC DATA: White count 10.6, hemoglobin 11.3, platelet count 251. Sodium 134, potassium 4.6, chloride 102, CO2 25.7, BUN and creatinine 47 and 2.4, glucose of 256, ____. Troponin is less than 0.01. Triglyceride is 538, cholesterol was 261. EKG remarkable for ST-T changes, highly suspicious for ischemia. Chest x-ray, no infiltrate, no congestion. CLINICAL IMPRESSION: 1. A 56-year-old female with history of diabetes, hypertension, hyperlipidemia, history of CVA, presented to Emergency Room with intermittent chest pain with radiation to the left upper extremity as well as the left side of the jaw, meaningful history unable to obtain, the patient had multiple episodes yesterday. The patient did have EKG changes, needs to be ruled out for acute coronary syndrome in the view of her history. 2. Chronic kidney disease. 3. Diabetes. 4. Hypertension. 5. Hyperlipidemia. 6. DJD. 7. History of CVA. 8. Expressive aphasia and right-sided weakness. PLAN: Admit this patient to telemetry unit, provide oxygen, aspirin, nitrates, beta nanci. Obtain 3 sets of cardiac enzymes, EKG to rule out for acute myocardial infarction. The patient will have diabetes management with Glucoscan a.c. and at bedtime with covering the sliding scale insulin with basal insulin as well. The patient will have Cardiology consultation as well and will follow his recommendation. Appropriate home medicine reconciliation will be done as well. The patient will also follow the consult recommendation. We will give further recommendations once the lab datas are available. JOB# [id number]
[2017-05-11 00:27] LABS: URINE BILIRUBIN NEGATIVE (NEGATIVE); URINE BLOOD SMALL (NEGATIVE); URINE GLUCOSE (UA) 500 mg/dL (NEGATIVE); URINE KETONE NEGATIVE (NEGATIVE); URINE PROTEIN 100 mg/dL (NEGATIVE); URINE UROBILINOGEN 0.2 E.U./dL (0.2 - 1.0)
[2017-05-11 00:36] LABS: URINE BACTERIA 1+ /hpf (NONE SEEN); URINE COLOR YELLOW; URINE EPITHELIAL CELLS FEW /lpf (FEW)
[2017-05-11] MEDS: INSULIN ASPART SLIDING SCALE 100 UNITS/ML UNIT SUBQ SCH ×2 (06:32→11:34)
[2017-05-11] MEDS ORDERED: Escitalopram Oxalate 5 mg Tab PO SCH (09:00)
[2017-05-11] MEDS ORDERED: Insulin Detemir 100 units/mL 10mL Vial SUBQ SCH (09:00)
[2017-05-11] MEDS ORDERED: NIFEDIPINE 90 MG PO SCH (09:00)
[2017-05-11] MEDS ORDERED: NIFEdipine 30 mg ER Tab PO SCH (09:00)
[2017-05-11] MEDS ORDERED: FENOFIBRATE MICRONIZED 134 MG PO SCH (09:00)
[2017-05-11] MEDS ORDERED: Non-Formulary Item 1 EA (Cranberry Fruit [Cranberry] 450 MG) PO SCH (09:00)
[2017-05-11] MEDS ORDERED: Ferrous Sulfate 325 MG TAB PO SCH (09:00)
[2017-05-11] MEDS ORDERED: Pantoprazole 40 mg EC Tab PO SCH (09:00)
[2017-05-11] MEDS ORDERED: Multivitamin w/ Minerals Tab PO SCH (09:00)
[2017-05-11] MEDS ORDERED: Fenofibrate, Micronized 134 mg Cap PO SCH (09:00)
--- NOTE | 2017-05-11 13:06 | Consultation ---
DATE OF CONSULTATION: 05/10/2017 HISTORY AND PHYSICAL: This is a 56-year-old female patient who was at [facility] facility. The patient had been complaining of chest pain, jaw pain, off and on, hence the patient was transferred to the Emergency Room and the patient is admitted. No history of PND or orthopnea. PAST MEDICAL HISTORY: The patient has a history of dementia, major depression, diabetes mellitus type 2, diabetic CKD stage 3, hyperlipidemia, iron deficiency anemia. FAMILY HISTORY: Unremarkable. SOCIAL HISTORY: No history of smoking, alcohol abuse. ALLERGIES: No known allergies. PHYSICAL EXAMINATION: VITAL SIGNS: Blood pressure 170/80, pulse 70, respirations 20. HEAD: Normocephalic. No lumps or bumps. EYES: Pupils equal, reactive to light. Fundi show AV nicking, sclerae white, conjunctivae pink. NECK: Carotid 2+. Normal upstroke. JVD flat. Thyroid not palpable. Lymph nodes not palpable. CHEST: Shows increased AP diameter. No kyphosis, scoliosis. LUNGS: Bilateral bronchovesicular breath sounds. HEART: PMI fifth intercostal space with lateral to midclavicular line. S1, S2. No S3, S4. Soft systolic murmur. ABDOMEN: Soft. Liver, spleen not palpable. No organomegaly. Bowel sounds are active. NEUROLOGIC: Unremarkable. EXTREMITIES: Peripheral pulses 2+. No pedal edema. The patient has osteoarthritis of the left knee. CLINICAL IMPRESSION: Chest pain, rule out coronary artery disease, dementia, major depression, diabetes mellitus type 2, diabetic CKD stage 3, hyperlipidemia, iron deficiency anemia, osteoarthritis of the knee. PLAN: Admit the patient. We will start the patient on EKG, troponin level, Lovenox and also start the patient on Lipitor. JOB# [id number]
--- NOTE | 2017-05-12 03:49 | Discharge Summary ---
DATE OF DISCHARGE: 05/11/2017 PRINCIPAL DIAGNOSES: 1. Acute coronary syndrome. 2. Diabetes mellitus. 3. Hypertension. 4. CKD, 3. 5. Hyperlipidemia. 6. Urinary tract infection. 7. DJD. 8. History of CVA with right-sided weakness. 9. Expressive aphasia. 10. Dysphagia. 11. High risk for fall. BRIEF STATEMENT FOR THE REASON FOR ADMISSION: A 56[facility] with history of diabetes, hypertension, hyperlipidemia, CVA, who presented to the Emergency Room for chest pain, neck pain, jaw pain, intermittently for the last 3 days, but patient had multiple episodes of chest pain with radiation to the left side of upper extremity as well as the jaw within 2 hours, so the patient was sent to the Emergency Room. The patient was evaluated and subsequently admitted to the hospital for further treatment. Please refer to my dictated medical H and P for further information. HOSPITAL COURSE: 1. The patient was admitted to telemetry unit, provided oxygen. 2. Aspirin. 3. Nitrates. 4. Beta nanci were given. Cardiac enzymes were obtained. Cardiology consultation requested. Appropriate home medicine was reconciliated as well. The patient was ruled out for acute myocardial infarction. I did have a discussion with the trackwalker, recommended no further workup at this time. Echocardiogram was not unremarkable for any wall motion abnormality. The patient did have an urinary tract infection by urinalysis. The patient was placed on ciprofloxacin at the time of discharge. The patient had vague complaint of the pain, which I suspect from musculoskeletal etiology, which can be treated with pain management. The patient is discharged back to [facility] on 05/11/2017 in stable condition where the patient will be followed by myself and my nurse practitioner. At the time of discharge, all of her meds are reconciliated. JOB# [id number]
--- NOTE | 2017-05-12 16:51 | Cardiology ---
05/10/[address] Jaffe. PROCEDURE: Echocardiogram. M-MODE ECHOCARDIOGRAM: Mitral valve, anterior leaflet of mitral valve shows normal excursion, EF velocity. Posterior leaflet of mitral valve shows normal excursion. Left ventricle posterior wall shows increased thickness, normal excursion. Interventricular septum shows increased thickness, normal excursion, hypertrophy of the left ventricle, ejection fraction 55%. Left atrium normal. Aortic root shows normal dimension, normal excursion of aortic leaflets. CONCLUSION: Hypertrophy of the left ventricle, ejection fraction 55%. 2D ECHO: Long axis view showed normal sized left ventricle with hypertrophy of the left ventricle. Left atrium normal. Aortic root shows normal dimension, normal excursion of aortic leaflets. Short axis view of mitral valve normal. Short axis view of aortic valve normal. Apical four chamber view showed normal sized left ventricle, left atrium, right ventricle, right atrium, tricuspid and mitral valve. CONCLUSION: Hypertrophy of the left ventricle, ejection fraction 55%. Doppler study shows prominent area consistent with full compliance of left ventricle with mild mitral regurgitation. [facility]# [id number]
== END 2017-05-11 12:00 | disposition home or self-care (01) | DRG 311 ==
LOC: ER 18:33 → TELE 21:00
PROVIDERS: ADMIT Internal Medicine; ATTEND Internal Medicine
DX: I24.9 Acute ischemic heart disease, unspecified (principal); E11.22 Type 2 diabetes mellitus with diabetic chronic kidney disease; F03.90 Unspecified dementia, unspecified severity, without behavioral disturbance, psychotic disturbance, mood disturbance, and anxiety; N39.0 Urinary tract infection, site not specified; I69.351 Hemiplegia and hemiparesis following cerebral infarction affecting right dominant side; K04.7 Periapical abscess without sinus; F29 Unspecified psychosis not due to a substance or known physiological condition; F32.9 Major depressive disorder, single episode, unspecified; E78.5 Hyperlipidemia, unspecified; I12.9 Hypertensive chronic kidney disease with stage 1 through stage 4 chronic kidney disease, or unspecified chronic kidney disease; K21.9 Gastro-esophageal reflux disease without esophagitis; N18.3 Chronic kidney disease, stage 3 (moderate); D50.9 Iron deficiency anemia, unspecified; M17.10 Unilateral primary osteoarthritis, unspecified knee; Z91.81 History of falling; I69.320 Aphasia following cerebral infarction; Z88.0 Allergy status to penicillin; Z88.5 Allergy status to narcotic agent
CPT/HCPCS: 36415-UA; 71010-TC; 80053-TC; 80061-TC; 81001-TC; 82948-90; 83036-90; 83735-TC; 83880-TC; 84484-TC; 85025-TC; 87086-90; 93005; J1815; Z7502; Z7610

== ENCOUNTER 2017-11-25 11:39 | Inpatient (IN) | payer MEDICARE, MEDICAID ==
[2017-11-25] MEDS ORDERED: Haloperidol Lactate 5 mg/mL 1mL Vial IM STA (11:50)
[2017-11-25] MEDS ORDERED: Haloperidol Lactate 5 mg/mL 1mL Vial ONE (11:53)
--- NOTE | 2017-11-25 11:57 | ED Physician Chart ---
ED Chief Complaint/HPI - Patient Information Date Seen:: 11/25/17 Time Seen:: 11:45 Chief Complaint:: Agitation History of Present Illness:: onset x 2 days of agitation and aggressive behavior; no report of SIs, trauma, H /As, neck pain, C/P, SOB, Abd. pain, A/N/V/D/C, fever, chills, or urinary s/s Allergies:: Allergies Allergy/AdvReac Type Severity Reaction Status Date / Time codeine AdvReac Verified 06/14/17 00:05 Penicillins [PCN] AdvReac Verified 06/14/17 00:05 Historian:: Patient, EMS Review:: Nurse's Note Reviewed, Old Chart Reviewed, EMS run form Reviewed ED Review of Systems - Review of Systems General/Constitutional: No fever, No chills, No weight loss, No weakness, No diaphoresis, No edema, No loss of appetite Skin: No skin lesions, No rash, No bruising Head: No headache, No light-headedness Eyes: No loss of vision, No pain, No diplopia ENT: No earache, No nasal drainage, No sore throat, No tinnitus Neck: No neck pain, No swelling, No thyromegaly, No stiffness, No mass noted Cardio Vascular: No chest pain, No palpitations, No PND, No orthopnea, No edema Pulmonary: No SOB, No cough, No sputum, No wheezing GI: No nausea, No vomiting, No diarrhea, No pain, No melena, No hematochezia, No constipation, No hematemesis G/U: No dysuria, No frequency, No hematuria, No nacturia Benefits Consultant: No vaginal discharge, No abnormal vaginal bleed, No contraction Musculoskeletal: No bone or joint pain, No back pain, No muscle pain Endocrine: No polyuria, No polydipsia Psychiatric: Prior psych history, No depression, Anxiety, No suicidal ideation, No homicidal ideation, No auditory hallucination, No visual hallucination Hematopoietic: No bruising, No lymphadenopathy Allergic/Immuno: No urticaria, No angioedema Neurological: No syncope, No focal symptoms, No weakness, No paresthesia, No headache, No seizure, No dizziness, No confusion, No vertigo ED Past Medical History - Past Medical History Obtainable: Yes Past Medical History: HTN, DM, CVA/TIA, Dyslipidemia, ESRD, Dementia Family History: Diabetes Melitus, HTN Social History: Non Smoker, No Alcohol, No Drug Use, Single, Care Facility Surgical History: None Psychiatricy History: Bipolar, Dementia Medication: Reviewed Family Medical History - Family Member Mother History Unknown: Yes Ethnicity: Unknown Living Status: Unknown Hx Family Cancer: (UNKNOWN) Hx Family Coronary Artery Disease: (UNKNOWN) Hx Family Congestive Heart Failure: (UNKNOWN) Hx Family Hypertension: (UNKNOWN) Hx Family Stroke: (UNKNOWN) Hx Family Diabetes: (UNKNOWN) Hx Family Seizures: (UNKNOWN) Hx Family Dementia: (UNKNOWN) Hx Family AIDS: (UNKNOWN) Hx Family COPD: (UNKNOWN) Hx Family Hepatitis: (UNKNOWN) Hx Family Psychiatric Problems: (UNKNOWN) Hx Family Tuberculosis: (UNKNOWN) ED Physical Exam - Physical Examination General/Constitutional: Awake, Well-developed, well-nourished, Alert, No distress, GCS 15, Non-toxic appearing, Ambulatory Head: Atraumatic Eyes: Lids, conjuctiva normal, PERRL, EOMI Skin: Nl inspection, No rash, No skin lesions, No ecchymosis, Well hydrated, No lymphadenopathy ENMT: External ears, nose nl, TM canals nl, Nasal exam nl, Lips, teeth, gums nl , Oropharynx nl, Tonsils nl Neck: Nontender, Full ROM w/o pain, No JVD, No nuchal rigidity, No bruit, No mass, No stridor Respiratory: Nl effort/Exclusion, Clear to Auscultation, No Wheeze/Rhonchi/Rales Cardio Vascular: RRR, No murmur, gallop, rubs, NL S1 S2, Carotid/Femoral/Distal pulses equal bilaterally GI: No tenderness/rebounding/guarding, No organomegaly, No hernia, Normal BS's, Nondistended, No mass/bruits, No McBurney tenderness : No CVA tenderness Extremities: No tenderness or effusion, Full ROM, normal strength in all extremities, No edema, Normal digits & nails Neuro/Psych: Alert/oriented, DTR's symmetric, Normal sensory exam, Normal motor strength, Judgement/insight normal, Mood normal, Normal gait Other Neuro/Psych comments:: + evidence of old CVA Misc: Normal back, No paraspinal tenderness ED Labs/Radiology/EKG Results - Lab Results Comments:: Glucose: 338; BUN: 52; Cr: 2.8; Na+: 133 - EKG Interpretations EKG Time:: 12:26 Rate & Rhythm: 70; NSR Comments:: Inverted T-Waves 2ndary to old CVA; otherwise non-specific st-t changes ED Septic Shock - . Is Septic Shock (SBP<90, OR Lactate>4 mmol\L) present?: No ED Reassessment (Disposition) - Reassessment Reassessment Condition:: Improved - Diagnosis Diagnosis:: Dx: Hyperglycemia; Hyponatremia; Hyperkalemia; Anemia; DM; HTN; Agitation; Psychosis; Medical Clearance; Bipolar Disorder; Dementia - Aftercare/Follow up Instructions Aftercare/Follow-Up Instructions:: Counseled pt regarding lab results/diagnosis & need follow up, Counseled pt & family regarding lab results/diagnosis & need follow up - Patient Disposition Discharge/Transfer:: Acute Care w/in this hosp Accepting Physician:: Dr. Jaffe Time Called:: 1340 Time Responded:: 13:40 Admitted to:: [facility] Spoke to:: Dr. Jaffe Admitting Medical Physician:: Dr. Jaffe Admitting Psych Physician:: Dr. Jarquin Condition at Disposition:: Stable, Improved
[2017-11-25 13:37] LABS: % BASOPHILS 0.4 % (0.0-2.0); % EOSINOPHILS 4.7 % (0.0-5.0); % LYMPHOCYTES 23.6 % (20.0-50.0); % MONOCYTES 5.8 % (2.0-10.0); % NEUTROPHILS 65.5 % (40.0-80.0); EOSINOPHILE ABSOLUTE 0.4 Th/cmm (0.1-0.4); HEMATOCRIT 33.6 % (41.0-60); HEMOGLOBIN 11.1 gm/dL (12-16); MEAN CELL VOLUME 85.2 fl (81-100); MEAN CORPUSCULAR HGB CONC 32.9 pg (28.0-36.0); MEAN PLATELET VOLUME 8.1 fl; MONOCYTE ABSOLUTE 0.5 Th/cmm (0.3-1.0); NEUTROPHILE ABSOLUTE 5.7 Th/cmm (1.8-8.0); PLATELET COUNT 208 Th/cmm (150-400); RED BLOOD COUNT 3.94 Mil/cmm (3.80-5.10); RED CELL DISTRIBUTION WIDTH 12.9 % (11.5-20.0); WHITE BLOOD COUNT 8.6 Th/cmm (4.8-10.8)
[2017-11-25 13:54] LABS: ACETAMINOPHEN < 10.0 ug/mL (10.0-30.0); ALB/GLOB RATIO 0.9 (1.0-1.8); ALBUMIN 3.3 gm/dL (3.7-5.3); ALKALINE PHOSPHATASE 81 U/L (34-104); ANION GAP 11.1 (7.0-16.0); BILIRUBIN,TOTAL 0.3 mg/dL (0.3-1.0); BUN - UREA NITROGEN 52 mg/dL (7-25); CALCIUM SERUM 9.3 mg/dL (8.6-10.3); CHLORIDE 100 mEq/L (98-107); CHOLESTEROL 202 mg/dL (<200); CREATININE - SERUM 2.8 mg/dL (0.6-1.2); GFR AFRICAN-AMERICAN 22.6 ml/min (>90); GFR NON AFRICAN-AMERICAN 18.6 ml/min; GLUCOSE 338 mg/dL (70-105); HDL -HIGH DENSITY LIPOPROTEIN 25 mg/dL (23-92); POTASSIUM SERUM 5.1 mEq/L (3.5-5.1); SALICYLATES (ASPIRIN) < 25.0 mg/L (30.0-100.0); SGOT 18 U/L (13-39); SGPT/ALT 28 U/L (7-52); SODIUM SERUM 133 mEq/L (136-145); TOTAL PROTEIN,SERUM 6.9 gm/dL (6.0-8.3); TRIGLYCERIDES 533 mg/dL (<150)
[2017-11-25] MEDS ORDERED: INSULIN ASPART, RECOMBINANT 100 UNITS/ML SUBQ ONE (16:00)
[2017-11-25 16:09] VITALS: BP 135/63
[2017-11-25] MEDS ORDERED: Maalox 30 mL Cup PO PRN (16:11)
[2017-11-25] MEDS ORDERED: Magnesium Hydroxide (MOM) 30 mL UDC PO PRN (16:11)
[2017-11-25 16:28] LABS: A1C % 10.3 % (4.0-6.0)
[2017-11-25] MEDS: INSULIN ASPART SLIDING SCALE 100 UNITS/ML UNIT SUBQ SCH ×2 (18:17→21:00)
[2017-11-25] MEDS ORDERED: INSULIN ASPART, RECOMBINANT 100 UNITS/ML SUBQ SCH (20:45)
[2017-11-25] MEDS ORDERED: INSULIN ASPART SLIDING SCALE 100 UNITS/ML UNIT SUBQ SCH (21:00)
[2017-11-25] MEDS: Insulin Detemir 100 units/mL 10mL Vial SUBQ SCH (21:43)
[2017-11-26] MEDS: INSULIN ASPART SLIDING SCALE 100 UNITS/ML UNIT SUBQ SCH ×4 (07:07→21:13)
[2017-11-26] MEDS ORDERED: INSULIN ASPART, RECOMBINANT 100 UNITS/ML SUBQ SCH ×2 (07:30→14:00)
[2017-11-26] MEDS: Insulin Detemir 100 units/mL 10mL Vial SUBQ SCH (08:35)
[2017-11-26] MEDS: Multivitamin Tab PO SCH (08:37)
--- NOTE | 2017-11-26 11:55 | History & Physical ---
ADMIT DATE: 11/26/2017 PATIENT'S IDENTIFICATION: A 57-year-old female. CHIEF COMPLAINT: "I want to sleep. HISTORY SOURCE: Reviewing the chart, talking to the retirementdirector of home economics as well as reviewing the chart. HISTORY OF PRESENT ILLNESS: A 57-year-old resident of retirement has multiple medical problems, which include diabetes mellitus, hypertension, hyperlipidemia, CVA, history of chronic kidney disease, history of left-sided weakness, noted by nursing staff that the patient was extremely agitated and tried to run away from the retirement. The patient was seen by Emergency Room MD and subsequently admitted to the hospital for further treatment. PAST MEDICAL HISTORY: Remarkable for: 1. Diabetes. 2. Hypertension. 3. Hyperlipidemia. 4. CVA with late effect. 5. DJD. 6. Chronic kidney disease. 7. High risk for fall. ALLERGIES: the patient is allergic to CODEINE and PENICILLIN. MEDICATIONS: List has been reviewed and reconciled appropriately. SOCIAL HISTORY: She is a resident of retirement. No smoking or drug use. FAMILY MEDICAL HISTORY: Unremarkable. REVIEW OF SYSTEMS: Unable to be admitting meaningful history from the patient due to currently underlying dementia, expressive aphasia as well. PHYSICAL EXAMINATION: GENERAL: The patient is alert, awake, lying in the bed without any acute distress. VITAL SIGNS: Temperature 96.7, pulse 74, respiratory rate 18, blood pressure 114/74. HEENT: Normocephalic, atraumatic. Extraocular muscles are intact. Tongue was pink and coated. Poor dentition noted. No oral lesion, no exudate. No sinus tenderness. NECK: Supple, no JVD, no hepatojugular reflex, no lymphadenopathy thyromegaly or carotid bruit. HEART: Both heart sounds are regular. No S3, no S4. CHEST AND LUNGS: Equal in expansion, no expiratory wheezing. ABDOMEN: Soft. No guarding, no rigidity. Bowel sounds present. No palpable mass. EXTREMITIES: No edema, no cyanosis. Peripheral pulses +1. No calf tenderness noted. NEUROLOGY: Remarkable for left-sided weakness noted with expressive aphasia and spasticity. EXTERNAL GENITALIA AND RECTAL EXAMINATION AND BREAST EXAMINATION: Not done due to underlying dementia and unable to get consent from the family. LABS: White count of 8.6, hemoglobin 11.1, platelet count 208. Sodium 133, potassium 5.1, chloride 100, CO2 27.0. BUN and creatinine is 52 and 2.8, glucose of 338, glycohemoglobin 10.3 ___ triglyceride of 533. CLINICAL IMPRESSION: 1. Psychotic disorder exacerbation. 2. Uncontrolled diabetes. 3. Chronic kidney disease, stage 3 to stage 4. 4. Hypertension. 5. Hyperlipidemia. 6. Cerebrovascular accident with late effect. 7. Degenerative joint disease. 8. Psychotic disorder exacerbation. 9. Hypertriglyceridemia secondary to poorly controlled diabetes mellitus. PLAN: The patient is admitted at this time to psychiatric unit. The patient will be receiving appropriate home medicine reconciliation in the view of uncontrolled diabetes. We will check urinalysis to make sure the patient has no urinary tract infection. Increase her basal insulin with bolus dose of NovoLog and see how she does. The patient will be receiving other medication as patient receiving. Continue antihypertensive medicine, statin as well. Fall precaution will be provided. General nursing care will be given. We will continue to follow this patient during the stay at the hospital. I sincerely thank you, Dr. Light for giving me the opportunity to participate in patient of yours. JOB# [id number]
--- NOTE | 2017-11-26 22:12 | Psychosocial Evaluation ---
DATE OF SERVICE: 11/26/2017 IDENTIFYING DATA: The patient is a 57-year-old woman, resident of [facility]. Information obtained by directly interviewing the patient as well as reviewing the admission papers. JUSTIFICATION HOSPITALIZATION: The patient is admitted here on a voluntary basis in view of her agitation and aggressive behavior. CHIEF COMPLAINT: "I'm too tired. I cannot talk to you now." HISTORY OF PRESENT ILLNESS: This is the second psychiatric hospitalization for this patient, who was hospitalized under my care in 2016. The patient has been diagnosed to have major depressive disorder with psychotic symptoms and the patient has been at [facility] at this time and the patient is not able to get along. The patient is reported to have been getting out of control, screaming and yelling and getting easily agitated and hence the patient has been brought over here for stabilization. PAST PSYCHIATRIC HISTORY: Please refer to the above. MEDICAL HISTORY: Physical examination is requested by Dr. Jaffe and is noted to be significant for CVA, seizure disorder, hypertension, diabetes, and morbid obesity. STRENGTH AND ASSETS: The patient is motivated. Legal problem, none at this time. SUBSTANCE ABUSE HISTORY: None. MENTAL STATUS EXAMINATION: The patient is a 57-year-old woman, moderately obese, superficially cooperative. Eye contact is poor. Mood is noted to be irritable. Affect is constricted. The patient is getting easily irritable and angry. The patient is reported to have been getting upset and has been aggressive at the facility. The patient has paranoia, but denies any command hallucinations. The patient is alert and oriented. The patient is fully aware that she is in the hospital. The patient's behavior is a clear danger to others. DIAGNOSTIC IMPRESSION: AXIS I: Major depressive disorder, recurrent with psychotic symptoms. AXIS II: None. AXIS III: As per Dr. Jaffe. IMMEDIATE TREATMENT PLAN: The patient is going to be closely monitored on the inpatient unit, provided with supportive psychotherapy. The patient is going to be encouraged to verbalize the concerns rather than to act out. The patient is going to be continued on the Seroquel and escitalopram. The medications are going to be adjusted and the patient is going to be encouraged to participate in the groups and verbalize the concerns rather than to act out. JOB# [id number]
[2017-11-27] MEDS: Insulin Detemir 100 units/mL 10mL Vial SUBQ SCH ×2 (09:18→21:00)
[2017-11-27] MEDS: Multivitamin Tab PO SCH (09:20)
[2017-11-27] MEDS: INSULIN ASPART, RECOMBINANT 100 UNITS/ML SUBQ SCH ×2 (13:56→21:00)
--- NOTE | 2017-11-28 00:08 | Progress Notes ---
DATE: PATIENT'S IDENTIFICATION: A 57-year-old female. SUBJECTIVE: The patient seen and examined. The patient's blood sugars are elevated. The patient is currently on basal bolus insulin therapy. Unable to get meaningful history from the patient. PHYSICAL EXAMINATION: VITAL SIGNS: On exam, temperature 98, pulse is 65, respiratory rate 18, blood pressure 101/53. HEENT: No facial asymmetry. NECK: Supple. No JVD. HEART: Regular. CHEST AND LUNG: Equal in expansion. No wheezing, no crackles. ABDOMEN: Soft, no guarding, no rigidity. Bowel sounds heard. No palpable mass. EXTREMITIES: No edema. NEUROLOGIC: Remarkable for left-sided weakness. CLINICAL IMPRESSION: 1. Psychotic disorder exacerbation. 2. Uncontrolled diabetes mellitus. 3. Hypertension. 4. Cerebrovascular accident. 5. Chronic kidney disease. 6. Hyperlipidemia. PLAN: At basal bolus insulin therapy. Adjust the dose of bolus insulin. Continue to monitor blood sugar, psych medication, psych followup, fall precautions, general nursing care along with nutritional support. Care plan reviewed and discussed. JOB# [id number]
--- NOTE | 2017-11-28 01:16 | Progress Notes ---
DATE: 11/27/2017 SUBJECTIVE: Staff was spoken to. The patient is interviewed. Mood is noted to be irritable. Affect is constricted. The patient is selectively mute. Insight and judgment at this time are noted to be still impaired. Impulse control is noted to be limited. Coping skills are noted to be limited. The patient has been having difficult time to cope with the stress. The patient is nodding her head, but is not providing much of any information. ASSESSMENT: The patient is still having difficult time to cope with the stress. PLAN: To continue the patient with the supportive therapy. I encouraged the patient to verbalize the concerns rather than to act out. The patient is reported to have been screaming and yelling earlier, but now she is selectively mute. JOB# [id number]
[2017-11-28] MEDS: Multivitamin Tab PO SCH (09:43)
[2017-11-28] MEDS: Insulin Detemir 100 units/mL 10mL Vial SUBQ SCH ×2 (09:45→21:05)
[2017-11-28] MEDS: INSULIN ASPART, RECOMBINANT 100 UNITS/ML SUBQ SCH ×3 (09:46→21:06)
--- NOTE | 2017-11-28 22:13 | Progress Notes ---
DATE: 11/28/2017 The patient was seen and examined. The patient is lying in the bed. Nurses' note reviewed. No new event reported. OBJECTIVE: VITAL SIGNS: Temperature 98.5, pulse 64, respiratory is 18, blood pressure 128/62 and medication administration record is reviewed as well. HEENT: No facial asymmetry. NECK: Supple, no JVD. HEART: Regular. CHEST AND LUNG: Equal in expansion, no wheezing, no crackles. ABDOMEN: Soft. No guarding, no rigidity. Bowel sounds are present. No palpable mass. EXTREMITIES: Left-sided weakness noted with spasticity. CLINICAL IMPRESSION: 1. Uncontrolled diabetes mellitus with glycohemoglobin A1c of 10.3. 2. Chronic kidney disease, stage 3 to stage 4. 3. Hypertriglyceridemia. 4. Cerebrovascular accident with left-sided weakness. 5. Expressive aphasia. 6. Psychotic disorder. 7. Hypertension. 8. Hyperlipidemia. 9. Degenerative joint disease. 10. High risk for fall. PLAN: Basal bolus insulin therapy with adjusting the dose of insulin based on the blood sugar chart for now. Monitor blood pressure. Fall precautions. Antiplatelet therapy, general nursing care. Psych medication and psych followup. Statin as ordered. We will continue to follow this patient during her stay in the hospital. JOB# [id number]
--- NOTE | 2017-11-29 02:18 | Progress Notes ---
DATE: 11/28/2017 SUBJECTIVE: Staff was spoken to. The patient is interviewed. Mood is noted to be irritable. Affect is constricted. The patient has been selectively mute. Insight and judgment are noted to be still impaired. Impulse control is noted to be poor. The patient has been able to tolerate the medications. No side effects to the medications are noted. Continues to be paranoid, but the screaming and yelling is the one that we are closely monitoring for this patient. ASSESSMENT AND PLAN: The patient, at this time, is still not able to contract for safety and aggressive behavior is unpredictable, and hence, I am increasing the dose of Seroquel to 100 mg at bedtime and the patient is going to be followed up. JOB# [id number]
[2017-11-29] MEDS: Multivitamin Tab PO SCH (09:22)
[2017-11-29] MEDS: INSULIN ASPART, RECOMBINANT 100 UNITS/ML SUBQ SCH ×3 (09:24→20:51)
[2017-11-29] MEDS: Insulin Detemir 100 units/mL 10mL Vial SUBQ SCH ×2 (09:25→20:47)
--- NOTE | 2017-11-29 23:20 | Progress Notes ---
DATE: 11/29/2017 SUBJECTIVE: Staff was spoken to. The patient is interviewed. Mood is noted to be irritable. Affect is constricted. The patient for the first time has been able to say a few words, stating that this is too much of noise on the unit and she could not bear it. Coping skills at this time are noted to be still poor. The patient is at this time not screaming or yelling, however, has been able to verbalize a few things are bothering her. ASSESSMENT: The patient's impulsivity is being closely monitored. PLAN: To continue the patient with the supportive therapy and continue the escitalopram, and Seroquel and follow the patient up. JOB# [id number]
[2017-11-30] MEDS: Insulin Detemir 100 units/mL 10mL Vial SUBQ SCH ×2 (09:03→21:08)
[2017-11-30] MEDS: INSULIN ASPART, RECOMBINANT 100 UNITS/ML SUBQ SCH ×3 (09:04→16:42)
[2017-11-30] MEDS: Multivitamin Tab PO SCH (09:05)
--- NOTE | 2017-11-30 09:07 | Consultation ---
DATE OF CONSULTATION: 11/28/2017 REFERRING PHYSICIAN: Jonah Light MD TYPE OF CONSULTATION: Psychology. HISTORY OF PRESENT ILLNESS: The patient is a 57-year-old female. The patient is a resident of [facility] and is known to this mortgage or loan underwriter from her placement. The following is by review of the medical record as well as by the patient's self report. The patient is being admitted due to increased agitation and aggressive behavior. The patient reports that she feels very tired. The patient is reported by the staff at her facility to be getting out of control with screaming and yelling episodes and becoming difficult to de-escalate and redirect. Therefore, the patient was admitted here for stabilization. The patient denies any suicidal ideation, plan or intention or any wish to . PAST MEDICAL HISTORY: Please see history and physical by Dr. Jaffe. PAST PSYCHIATRIC HISTORY: The patient has a history of major depression, recurrent, severe. The patient is under the care of a psychiatrist and psychologist at her [facility] facility. SUBSTANCE ABUSE HISTORY: The patient denies any history. PSYCHOSOCIAL HISTORY: The patient did not answer questions about occupational or educational history or religion affiliation. The patient denied any history of physical or sexual abuse or any current legal problems. The patient wishes to return to her facility upon discharge. MENTAL STATUS EXAMINATION: The patient appears to be her stated age. The patient's attitude is superficially cooperative. Eye contact is poor. Speech is slow and delayed. Mood is irritable. Affect is constricted. The patient denied any auditory or visual hallucinations; however, there is some evidence the patient is experiencing paranoid ideation. The patient denied any suicidal ideation, plan or intention. The patient is easily upset and irritated. Staff reports yelling episodes. Impulse control is poor. Concentration is poor. The patient' s motivation for treatment is poor. Sensorium is alert and oriented to person and place. The patient did not participate in the memory assessment. The patient did not participate in the interpretation of proverbs. Insight is poor. Judgment is compromised. DIAGNOSTIC IMPRESSION: AXIS I: History of major depressive disorder, recurrent, severe with psychotic symptoms. AXIS II: Deferred. AXIS III: Per Dr. Jaffe. TREATMENT PLAN: The patient has been seen by Dr. Light for psychiatric evaluation and for the management of the patient's psychotropic medications. We will provide supportive psychotherapy to include coping strategies for phase of life issues. We will provide motivational enhancement for the patient to become compliant with care, verbalize her concerns versus acting out and to reduce the verbal outbursts. We will continue to provide supportive therapy throughout her hospital stay. We will include cognitive behavioral therapy to reduce the patient's depression and provide coping skills as well as stress management skills to increase the patient's frustration tolerance. Thank you, Dr. Light for this consult and the opportunity to participate with you in this patient's care. JOB# [id number] GIORGIO
[2017-11-30] MEDS: INSULIN ASPART SLIDING SCALE 100 UNITS/ML UNIT SUBQ SCH (16:41)
--- NOTE | 2017-11-30 17:00 | Progress Notes ---
DATE: 11/30/2017 SUBJECTIVE: Staff was spoken to. The patient is interviewed. Mood is noted to be irritable. Affect is constricted. The patient is verbalizing a little bit, but not much, but patient is very quiet and no aggressive behavior is reported today. Coping skills are noted to be fair. Insight and judgment are to be improving. Impulse control seems to be fair today. No side effects to the medications are noted. ASSESSMENT: The patient's impulsivity is resolving. PLAN: To continue the patient with the current medications and follow. JOB# [id number]
--- NOTE | 2017-11-30 18:10 | Progress Notes ---
DATE: SUBJECTIVE: The patient is a 57-year-old female. The patient was seen and examined. PHYSICAL EXAMINATION: GENERAL: The patient is lying in the bed. VITAL SIGNS: Temperature 97.3, pulse 68, respiratory rate 18, and blood pressure 123/64. HEENT: No facial asymmetry. NECK: Supple, no JVD. HEART: Regular. CHEST AND LUNGS: Equal in expansion, no wheezing, no crackles. ABDOMEN: Soft. No guarding, rigidity. Bowel sounds are present. No palpable mass. EXTREMITIES: No edema. NEUROLOGICAL: Left-sided weakness noted. CLINICAL IMPRESSION: 1. Diabetes mellitus. 2. Chronic kidney disease, stage III to stage IV. 3. Hypertension. 4. Cerebrovascular accident. 5. Hyperlipidemia. 6. Psychotic disorder. 7. Degenerative joint disease. 8. Dysphagia. 9. Aphasia. PLAN: Continue to monitor blood sugar, blood pressure. Continue antihypertensive medicine. Continue to provide general nursing care along with fall precautions, dysphagia, diet, and medication management. The patient will be followed by us during the stay in the hospital. JOB# [id number]
[2017-12-01] MEDS: INSULIN ASPART SLIDING SCALE 100 UNITS/ML UNIT SUBQ SCH ×3 (06:45→17:22)
[2017-12-01] MEDS: INSULIN ASPART, RECOMBINANT 100 UNITS/ML SUBQ SCH ×3 (06:46→17:23)
[2017-12-01] MEDS ORDERED: Insulin Detemir 100 units/mL 10mL Vial SUBQ SCH (09:32)
--- NOTE | 2017-12-01 09:53 | Progress Notes ---
DATE: 12/01/2017 SUBJECTIVE: The patient seen and examined. The patient is lying in the bed. Blood sugars are still elevated. The patient is using basal bolus insulin with sliding scale regular insulin as well. The patient currently discussed with nursing staff, no new event noted. OBJECTIVE: On exam, VITAL SIGNS: Temperature 96, pulse is 59, respiratory rate 18, blood pressure 103/61. HEENT: No facial asymmetry. Poor dentition noted. NECK: Supple. No JVD. HEART: Regular. CHEST AND LUNG: Equal in expansion, no wheezing, no crackles. ABDOMEN: Soft. No guarding, no rigidity. Bowel sounds present. EXTREMITIES: No edema. CLINICAL IMPRESSION: 1. Uncontrolled diabetes mellitus. 2. Chronic kidney disease. 3. Hypertension. 4. Cerebrovascular accident with late effect. 5. Degenerative joint disease. 6. Hyperlipidemia. 7. Psychotic disorder. PLAN: Increased basal insulin dose at nighttime. Continue bolus dose insulin with the sliding scale as ordered. Continue to provide general nursing care along with other medication as patient receiving psych medication. Follow up as per psychiatrist. Care plan reviewed and discussed with staff. JOB# [id number]
[2017-12-01] MEDS: Insulin Detemir 100 units/mL 10mL Vial SUBQ SCH (10:05)
[2017-12-01] MEDS: Multivitamin Tab PO SCH (10:07)
--- NOTE | 2017-12-02 00:22 | Progress Notes ---
DATE: 12/01/2017 SUBJECTIVE: Staff was spoken to. The patient is interviewed. Mood is noted to be irritable. Affect is constricted. Insight and judgment are noted to be still impaired. Impulse control seems to be limited. The patient's screaming and yelling has been coming down. No side effects to the medications are noted. The patient has been able to verbalize the concerns. Initially, the patient was selectively mute and now the patient has been able to verbalize some of her concerns. The patient is currently on Lexapro 10 mg and Seroquel 100 mg at bedtime and has been able to tolerate. ASSESSMENT: The patient is stabilizing. PLAN: If the patient continues to be like this, possibly discharge tomorrow. JOB# [id number]
[2017-12-02] MEDS: INSULIN ASPART SLIDING SCALE 100 UNITS/ML UNIT SUBQ SCH ×2 (06:47→12:03)
[2017-12-02] MEDS: INSULIN ASPART, RECOMBINANT 100 UNITS/ML SUBQ SCH ×2 (06:47→12:03)
[2017-12-02] MEDS: Multivitamin Tab PO SCH (09:48)
[2017-12-02] MEDS: Insulin Detemir 100 units/mL 10mL Vial SUBQ SCH (09:49)
--- NOTE | 2017-12-02 16:40 | Progress Notes ---
DATE: 12/02/2017 SUBJECTIVE: The patient seen and examined. The patient is lying in the bed. No new event. The patient remained hemodynamically stable. Glucoscan is reviewed. PHYSICAL EXAMINATION: VITAL SIGNS: Temperature 98.2, pulse 78, respiratory rate 18, and blood pressure 140/78. HEENT: No facial asymmetry. NECK: Supple, no JVD. HEART: Regular. CHEST: Equal in expansion, no wheezing, no crackles. ABDOMEN: Soft. EXTREMITIES: No edema. NEUROLOGIC: Remarkable for left-sided weakness. CLINICAL IMPRESSION: 1. Diabetes mellitus, uncontrolled, currently on insulin. 2. Hypertension. 3. Cerebrovascular accident with late effect. 4. Psychotic disorder. 5. Hyperlipidemia. 6. Degenerative joint disease. PLAN: 1. Monitor blood sugar, blood pressure. 2. Fall precautions. 3. Basal and bolus insulin therapy. 4. Statins. 5. Fall precaution. 6. General nursing care. 7. Adjust dose based on the Glucoscan reading. 8. Continue antiplatelet therapy. 9. Care plan reviewed and discussed with staff. JOB# [id number]
== END 2017-12-02 14:30 | DRG 885 ==
LOC: ER 11:39 → GERO2 14:28
PROVIDERS: ADMIT Psychiatry & Neurology Psychiatry; ATTEND Psychiatry & Neurology Psychiatry
DX: F33.3 Major depressive disorder, recurrent, severe with psychotic symptoms (principal); N18.6 End stage renal disease; E11.65 Type 2 diabetes mellitus with hyperglycemia; I12.0 Hypertensive chronic kidney disease with stage 5 chronic kidney disease or end stage renal disease; E87.1 Hypo-osmolality and hyponatremia; R47.01 Aphasia; I69.354 Hemiplegia and hemiparesis following cerebral infarction affecting left non-dominant side; Z88.6 Allergy status to analgesic agent; Z88.0 Allergy status to penicillin; E11.22 Type 2 diabetes mellitus with diabetic chronic kidney disease; Z83.3 Family history of diabetes mellitus; Z82.49 Family history of ischemic heart disease and other diseases of the circulatory system; F03.90 Unspecified dementia, unspecified severity, without behavioral disturbance, psychotic disturbance, mood disturbance, and anxiety; E87.5 Hyperkalemia; D64.9 Anemia, unspecified; M19.90 Unspecified osteoarthritis, unspecified site; E78.1 Pure hyperglyceridemia; R13.10 Dysphagia, unspecified
CPT/HCPCS: 36415-UA; 80053-TC; 80061-TC; 80320-TC; 80329-TC; 83036-90; 84443-TC; 84703-TC; 85025-TC; 86592-TC; 93005; J1630; J1815; J2060; Z7610

== ENCOUNTER 2018-02-26 16:36 | Inpatient (IN) | payer MEDICARE, MEDICAID ==
--- NOTE | 2018-02-26 17:33 | ED Physician Chart ---
ED Chief Complaint/HPI - Patient Information Date Seen:: 02/26/18 Time Seen:: 17:05 Chief Complaint:: striking out History of Present Illness:: Patient has been reportedly demonstrating increased agitation and striking out at others at her extended care facility. Patient complains of bilateral leg pain. Allergies:: Allergies Allergy/AdvReac Type Severity Reaction Status Date / Time codeine AdvReac Verified 06/14/17 00:05 Penicillins [PCN] AdvReac Verified 06/14/17 00:05 Historian:: Patient Review:: Transfer documents Reviewed ED Past Medical History - Past Medical History Past Medical History: HTN, DM, Dyslipidemia, Other (chronic renal disease; psychosis; hypercholesterolemia) Surgical History: other (unavailable) Psychiatricy History: Depression Medication: Reviewed Family Medical History - Family Member Mother History Unknown: Yes Ethnicity: Unknown Living Status: Unknown Hx Family Cancer: (UNKNOWN) Hx Family Coronary Artery Disease: (UNKNOWN) Hx Family Congestive Heart Failure: (UNKNOWN) Hx Family Hypertension: (UNKNOWN) Hx Family Stroke: (UNKNOWN) Hx Family Diabetes: (UNKNOWN) Hx Family Seizures: (UNKNOWN) Hx Family Dementia: (UNKNOWN) Hx Family AIDS: (UNKNOWN) Hx Family COPD: (UNKNOWN) Hx Family Hepatitis: (UNKNOWN) Hx Family Psychiatric Problems: (UNKNOWN) Hx Family Tuberculosis: (UNKNOWN) ED Physical Exam - Physical Examination General/Constitutional: Awake, Well-developed, well-nourished, Alert, No distress, Non-toxic appearing, Ambulatory Other Gen/Cons comments:: Patient is a vague historian. She apparently does not know the year. Head: Atraumatic Eyes: Lids, conjuctiva normal, PERRL, EOMI Skin: Nl inspection, No rash, No skin lesions, No ecchymosis, Well hydrated, No lymphadenopathy ENMT: External ears, nose nl, Nasal exam nl, Lips, teeth, gums nl Neck: Nontender, Full ROM w/o pain, No JVD, No nuchal rigidity, No bruit, No mass, No stridor Respiratory: Nl effort/Exclusion, Clear to Auscultation, No Wheeze/Rhonchi/Rales Cardio Vascular: RRR, No murmur, gallop, rubs, NL S1 S2 GI: No tenderness/rebounding/guarding, No organomegaly, No hernia, Normal BS's, Nondistended, No mass/bruits, No McBurney tenderness : No CVA tenderness Extremities: No tenderness or effusion, Full ROM, normal strength in all extremities, No edema, Normal digits & nails Other Extremities comments:: Legs appear normal Neuro/Psych: Alert/oriented, DTR's symmetric, Normal sensory exam, Normal motor strength, Judgement/insight normal, Mood normal, Normal gait, No focal deficits Misc: Normal back, No paraspinal tenderness ED Labs/Radiology/EKG Results - Lab Results Results: Laboratory Results - last 24 hr 02/26/18 02/26/18 17:20 17:20 WBC 9.1 RBC 4.03 Hgb 11.7 L Hct 34.9 L MCV 86.8 MCH 29.0 MCHC Differential 33.4 RDW 12.7 Plt Count 202 MPV 9.1 Neutrophils % 64.7 Lymphocytes % 24.4 Monocytes % 7.4 Eosinophils % 2.8 Basophils % 0.7 Sodium 131 L Potassium 4.9 Chloride 98 Carbon Dioxide 25.7 Anion Gap 12.2 BUN 58 H Creatinine 2.2 H Est GFR ( Amer) 29.8 Est GFR (Non-Af Amer) 24.6 BUN/Creatinine Ratio 26.4 Glucose 451 H* Calcium 8.9 Total Bilirubin 0.3 AST 15 ALT 21 Alkaline Phosphatase 86 Total Protein 6.6 Albumin 3.3 L Globulin 3.3 Albumin/Globulin Ratio 1.0 Triglycerides 498 H Cholesterol 198 LDL Cholesterol Direct 91 HDL Cholesterol 24 - EKG Interpretations Rate & Rhythm: normal sinus rhythm with a rate of 61 [place]: normal Comments:: Inverted T waves in lateral and anterior leads ED Assessment - Assessment General Assessment: After 10 units of regular insulin 2 (20 units total) subcutaneously patient's blood sugar is 392. Patient is not in diabetic ketoacidosis. She also has renal insufficiency. Patient appears medically stable to go to [facility] ED Septic Shock - . Is Septic Shock (SBP<90, OR Lactate>4 mmol\L) present?: No ED Reassessment (Disposition) - Reassessment Reassessment Condition:: Improved - Diagnosis Diagnosis:: Aggressive behavior; chronic renal insufficiency; diabetes; hyperglycemia - Patient Disposition Admitted to:: [facility] Admitting Medical Physician:: Kash Jaffe Admitting Psych Physician:: Jonah Light Condition at Disposition:: Stable, Unchanged
[2018-02-26 17:37] LABS: % BASOPHILS 0.7 % (0.0-2.0); % EOSINOPHILS 2.8 % (0.0-5.0); % LYMPHOCYTES 24.4 % (20.0-50.0); % MONOCYTES 7.4 % (2.0-10.0); % NEUTROPHILS 64.7 % (40.0-80.0); BASOPHILE ABSOLUTE 0.1 Th/cumm (0-0.2); EOSINOPHILE ABSOLUTE 0.3 Th/cmm (0.1-0.4); HEMATOCRIT 34.9 % (41.0-60); HEMOGLOBIN 11.7 gm/dL (12-16); LYMPHOCYTE ABSOLUTE 2.2 Th/cmm (1.5-3.0); MEAN CELL VOLUME 86.8 fl (81-100); MEAN CORPUSCULAR HGB CONC 33.4 pg (28.0-36.0); MEAN PLATELET VOLUME 9.1 fl; MONOCYTE ABSOLUTE 0.7 Th/cmm (0.3-1.0); NEUTROPHILE ABSOLUTE 5.8 Th/cmm (1.8-8.0); PLATELET COUNT 202 Th/cmm (150-400); RED BLOOD COUNT 4.03 Mil/cmm (3.80-5.10); RED CELL DISTRIBUTION WIDTH 12.7 % (11.5-20.0); WHITE BLOOD COUNT 9.1 Th/cmm (4.8-10.8)
[2018-02-26 18:04] LABS: ALBUMIN 3.3 gm/dL (3.7-5.3); ANION GAP 12.2 (7.0-16.0); BILIRUBIN,TOTAL 0.3 mg/dL (0.3-1.0); CALCIUM SERUM 8.9 mg/dL (8.6-10.3); CARBON DIOXIDE 25.7 mEq/L (21.0-31.0); CREATININE - SERUM 2.2 mg/dL (0.6-1.2); GFR AFRICAN-AMERICAN 29.8 ml/min (>90); GFR NON AFRICAN-AMERICAN 24.6 ml/min; POTASSIUM SERUM 4.9 mEq/L (3.5-5.1); TOTAL PROTEIN,SERUM 6.6 gm/dL (6.0-8.3)
[2018-02-26] MEDS ORDERED: INSULIN HUMAN REGULAR 100 UNITS/ML UNIT SUBQ ONE ×2 (18:21→20:20)
[2018-02-26] MEDS ORDERED: INSULIN HUMAN REGULAR 100 UNITS/ML UNIT ONE ×2 (18:28→20:57)
[2018-02-26 23:48] VITALS: BP 148/70
[2018-02-27] MEDS ORDERED: Magnesium Hydroxide (MOM) 30 mL UDC PO PRN (00:31)
[2018-02-27] MEDS ORDERED: Maalox 30 mL Cup PO PRN (00:31)
[2018-02-27] MEDS: INSULIN ASPART SLIDING SCALE 100 UNITS/ML UNIT SUBQ SCH ×3 (06:39→17:11)
[2018-02-27] MEDS: INSULIN ASPART, RECOMBINANT 100 UNITS/ML SUBQ SCH ×3 (07:47→17:11)
[2018-02-27] MEDS: Multivitamin Tab PO SCH (08:30)
[2018-02-27] MEDS: Insulin Detemir 100 units/mL 10mL Vial SUBQ SCH (09:44)
--- NOTE | 2018-02-27 15:43 | History & Physical ---
ADMIT DATE: 02/27/2018 THE PATIENT'S ID: A 57-year-old female. REQUESTING PHYSICIAN: Dr. Light. REASON FOR CONSULTATION: Medical management. HISTORY OF PRESENT ILLNESS: A 57-year-old resident of a care home, has been followed by myself and Dr. Avendaño, brought into the Emergency Room after the patient was noted to have aggressive behavior and at increasing agitation. The patient was evaluated and now admitted to the hospital for further treatment. PAST MEDICAL HISTORY: Remarkable for: 1. Diabetes. 2. Hypertension. 3. Hyperlipidemia. 4. CVA with late effect. 5. DJD. 6. Chronic kidney disease. 7. Dysphagia and dysarthria. ALLERGIES: The patient is allergic to CODEINE AND PENICILLIN. MEDICATIONS: The patient's medication list has been reviewed and reconciled appropriately. SOCIAL HISTORY: She is a resident of care home. No history of smoking cigarette, drinking alcohol, using street drug use. FAMILY MEDICAL HISTORY: Remarkable for diabetes. REVIEW OF SYSTEMS: I am unable to get meaningful history from the patient. PHYSICAL EXAMINATION: GENERAL: Alert, awake, lying in the bed without any acute distress. VITAL SIGNS: Temperature 96.8, pulse is 84, respiratory rate is 18, blood pressure is 130/60. HEENT: Normocephalic, atraumatic. Extraocular muscles are intact. Tongue was pink and coated. Poor dentition noted. No oral lesion, no exudate. No sinus tenderness. Externally auditory canal and tympanic membranes are well visualized. NECK: Supple, no JVD, no hepatojugular reflex. No lymphadenopathy, thyromegaly, or carotid bruit. HEART: Both heart sounds are regular. No S3, no S4. CHEST AND LUNGS: Equal in expansion, no expiratory wheezing. ABDOMEN: Soft. No guarding, no rigidity. Bowel sounds are present. No palpable masses. EXTREMITIES: No edema, no cyanosis. Peripheral pulses +1. No calf tenderness. NEUROLOGIC: Alert and awake. Left-sided weakness with expressive aphasia, dysphagia, ___ spasticity noted. EXTERNAL GENITALIA, RECTAL EXAMINATION, BREAST EXAMINATION: Not done at this time. AVAILABLE DIAGNOSTIC DATA: Performed in the Emergency Room, white count of 9.1, hemoglobin 11.7, platelet count of 202. BUN and creatinine is 58 and 2.2, glucose of 451, bicarbonate of 25.7. Triglyceride of 498. RPR nonreactive. CLINICAL IMPRESSION: 1. Diabetes mellitus with elevated blood sugar. 2. Hypertension. 3. Hyperlipidemia. 4. Degenerative joint disease. 5. Peripheral vascular disease. 6. Cerebrovascular accident with late effect. 7. Psychotic disorder exacerbation. 8. Expressive aphasia and dysphagia. 9. High risk for fall. PLAN: 1. Admit this patient to medical floor. 2. Diabetes management. 3. Appropriate home medicine reconciliation. 4. Psychotic evaluation and management deferred to psychiatrist. 5. General nursing care. 6. Fall precaution. 7. Nutritional support. 8. Follow lab. 9. We will continue to follow this patient during the stay in the hospital. Care plan has been reviewed and discussed with assigned nurse as well. JOB# [id number]
[2018-02-27] MEDS ORDERED: Insulin Detemir 100 units/mL 10mL Vial SUBQ SCH (21:00)
[2018-02-27 21:59] LABS: A1C % 10.7 % (4.0-6.0)
--- NOTE | 2018-02-27 22:25 | Psychiatric Evaluation ---
DATE OF SERVICE: 02/26/2018 PSYCHIATRIC EVALUATION IDENTIFYING DATA: The patient is a 57-year-old woman, resident of custodial facility. Information obtained by directly interviewing the patient as well as reviewing the admission paper. JUSTIFICATION FOR HOSPITALIZATION: The patient is admitted here for her agitation and confusion. CHIEF COMPLAINT: "I'm frustrated and I should not be in here." HISTORY OF PRESENT ILLNESS: This is one of multiple psychiatric hospitalizations for this patient who was hospitalized under my care in 2018, and the patient has been getting easily irritable, angry and upset. The patient is not able to get along with other people and the patient has to be admitted over here for stabilization. The patient tends to scream and yell. PAST PSYCHIATRIC HISTORY: Please refer to the above. MEDICAL HISTORY AND PHYSICAL EXAMINATION: Requested to be by Dr. Jaffe and is noted to be significant for CVA, seizure disorder, hypertension, diabetes, and morbid obesity. ALLERGIES: None at this time. STRENGTH AND ASSETS: The patient is motivated. MENTAL STATUS EXAMINATION: The patient is a 57-year-old woman, looking her stated age, superficially cooperative. Eye contact is poor. Mood is noted to be irritable. Affect is constricted. Insight and judgment at this time are noted to be still impaired. Impulse control is noted to be limited. Coping skills are noted to be limited. The patient has been currently medicated with Lexapro 10 mg in the morning. The patient is also getting the Seroquel 100 mg at bedtime. Even with the medications, the patient has been having difficult time. The patient is denying any auditory hallucinations, but the patient is noted to be paranoid. The patient's insight and judgment at this time are noted to be very much impaired. Impulse control is noted to be poor. The patient is alert and aware that she is in the hospital. DIAGNOSTIC IMPRESSION: AXIS I: Major depressive disorder, recurrent with psychotic symptoms. AXIS II: None. AXIS III: As per Dr. Cat. IMMEDIATE TREATMENT PLAN: The patient is going to be observed on the inpatient unit. Provided with supportive psychotherapy. Once stabilized, the patient is going to be discharged to [facility] to be followed up on an outpatient basis. JOB# [id number]
[2018-02-28] MEDS: INSULIN ASPART, RECOMBINANT 100 UNITS/ML SUBQ SCH ×3 (06:44→16:44)
[2018-02-28] MEDS: INSULIN ASPART SLIDING SCALE 100 UNITS/ML UNIT SUBQ SCH ×3 (06:49→16:44)
[2018-02-28] MEDS: Insulin Detemir 100 units/mL 10mL Vial SUBQ SCH ×2 (09:09→21:34)
[2018-02-28] MEDS: Multivitamin Tab PO SCH (09:11)
--- NOTE | 2018-02-28 13:09 | Progress Notes ---
DATE: 02/28/2018 IDENTIFICATION: A 57-year-old female. The patient seen and examined. The patient's blood sugars continues to remain elevated. Upon reviewing the MAR, the patient is currently on NovoLog sliding scale insulin with scheduled NovoLog and Levemir 70 and 24 units schedule as well. The patient does not provide any meaningful history. The patient's appetite is fair. PHYSICAL EXAMINATION: VITAL SIGNS: Temperature 98, pulse is ____, respiratory rate 18, blood pressure 110/70. HEENT: No facial asymmetry. NECK: Supple, no JVD. HEART: Regular. CHEST AND LUNGS: Equal in expansion, no expiratory wheezing. ABDOMEN: Soft, no guarding or rigidity. Bowel sounds are present. No palpable mass. EXTREMITIES: No edema. NEUROLOGICAL: Left-sided weakness with expressive aphasia noted. CLINICAL IMPRESSION: 1. Diabetes mellitus, uncontrolled. 2. Hypertension. 3. Psychotic disorder. 4. Chronic kidney disease. 5. Dementia. 6. History of cerebrovascular accident. 7. Degenerative joint disease. 8. High risk for fall. PLAN: 1. Adjust the dose of basal insulin. 2. Monitor the blood sugar and blood pressure. 3. Fall precautions. 4. Psychotic evaluation and management deferred to psychiatrist. 5. Continue to provide medication for hypertension, hyperlipidemia and cerebrovascular accident. 6. We will continue to follow this patient during the stay in the hospital. JOB# [id number]
--- NOTE | 2018-02-28 16:44 | Progress Notes ---
DATE: 02/28/2018 SUBJECTIVE: Staff was spoken to. The patient is interviewed and chart is reviewed. The patient continues to be isolative and withdrawn. Insight and judgment at this time are noted very much impaired. Impulse control is very poor. The patient's blood sugar is becoming a problem. The patient is isolative and withdrawn. No side effects to the medications are noted. Since the patient's blood sugar is becoming an issue, it is decided to hold off the Seroquel at this time and closely monitor the patient's behavior and follow the patient with the supportive therapy. The patient is going to be continued just on the citalopram. JOB# [id number]
[2018-03-01] MEDS: INSULIN ASPART, RECOMBINANT 100 UNITS/ML SUBQ SCH ×3 (06:56→16:57)
[2018-03-01] MEDS: INSULIN ASPART SLIDING SCALE 100 UNITS/ML UNIT SUBQ SCH (07:02)
[2018-03-01] MEDS: Multivitamin Tab PO SCH ×2 (08:24→08:35)
[2018-03-01] MEDS: Insulin Detemir 100 units/mL 10mL Vial SUBQ SCH ×2 (10:14→20:58)
--- NOTE | 2018-03-01 17:06 | Progress Notes ---
DATE: 03/01/2018 SUBJECTIVE: Staff was spoken to. The patient is interviewed. Mood is noted to be irritable. Affect is constricted. The patient is isolative and withdrawn. The patient's blood sugar is still going high and Seroquel has been kept on hold until the sugar is under control. No side effects to the medications are noted. ASSESSMENT: The patient is still depressed. PLAN: To continue the patient with the supportive therapy, encouraged the patient to verbalize the concerns rather than to act out. JOB# [id number]
--- NOTE | 2018-03-01 18:19 | Progress Notes ---
DATE: 03/01/2018 SUBJECTIVE: The patient seen and examined. The patient is lying in the bed. No new event. Glucoscan is reviewed, blood sugars run around 200+. The patient is currently on basal bolus insulin therapy, dose has been increased yesterday. PHYSICAL EXAMINATION: VITAL SIGNS: Temperature 97, pulse 66, respiratory rate 18, blood pressure 150/69 Glucoscan is reviewed. HEENT: No facial asymmetry. NECK: Supple, no JVD. HEART: Regular. CHEST: Lung equal in expansion, no expiratory wheezing. ABDOMEN: Soft. No guarding or rigidity. Bowel sounds are present. No palpable mass. EXTREMITIES: No edema. NEUROLOGIC: Left-sided weakness noted. CLINICAL IMPRESSION: 1. Diabetes mellitus with hyperglycemia. 2. Hypertension. 3. Chronic kidney disease stage 3 to stage 4. 4. Psychiatric disorder. 5. Cerebrovascular accident with late effect. 6. Dysphagia. PLAN: Adjust dose of basal insulin until blood sugars run less than 150. Continue to monitor blood sugar and provide diabetic diet. Also, provide general nursing care and fall precautions, nutritional support as well. Psychiatric evaluation and management deferred to psychiatrist. Continue chronic disease management as prescribed. We will continue to follow this patient during the stay in the hospital. JOB# [id number]
[2018-03-02] MEDS: INSULIN ASPART, RECOMBINANT 100 UNITS/ML SUBQ SCH ×2 (06:30→12:14)
[2018-03-02] MEDS: Multivitamin Tab PO SCH (09:09)
[2018-03-02] MEDS: Insulin Detemir 100 units/mL 10mL Vial SUBQ SCH ×2 (09:10→23:40)
[2018-03-02 19:54] LABS: ALBUMIN 3.2 gm/dL (3.7-5.3); ANION GAP 12.1 (7.0-16.0); BILIRUBIN,TOTAL 0.3 mg/dL (0.3-1.0); CALCIUM SERUM 8.9 mg/dL (8.6-10.3); CARBON DIOXIDE 25.9 mEq/L (21.0-31.0); CREATININE - SERUM 2.4 mg/dL (0.6-1.2); GFR NON AFRICAN-AMERICAN 22.3 ml/min; TOTAL PROTEIN,SERUM 6.4 gm/dL (6.0-8.3)
--- NOTE | 2018-03-02 21:25 | Progress Notes ---
DATE: 03/02/2018 IDENTIFICATION: The patient is a 57-year-old female. SUBJECTIVE: The patient seen and examined. The patient's blood sugar continues to remain about 250-350 range. The patient is currently on basal bolus insulin therapy. The patient has fair appetite. The patient is currently taking multiple medications for her underlying psychotic illness. Unable to get meaningful history from the patient. PHYSICAL EXAMINATION: VITAL SIGNS: Temperature 98, pulse is 64, respiratory rate 18, blood pressure 150/77. HEENT: No facial asymmetry. NECK: Supple. HEART: Regular. LUNGS: Clear to auscultate. ABDOMEN: Soft. EXTREMITIES: No edema. NEUROLOGIC: Left-sided weakness. CLINICAL IMPRESSION: 1. Diabetes mellitus with elevated blood sugar. 2. Hypertension. 3. Psychotic disorder. 4. Cerebrovascular accident with late effect. 5. Chronic kidney disease stage 3 to stage 4. 6. High risk for fall. 7. Dysphagia. PLAN: 1. Increase dose of basal bolus insulin therapy. 2. Monitor blood sugar. 3. Fall precautions. 4. Antihypertensive medication. 5. Psych followup. 6. General nursing care. 7. Dysphagia diet. 8. Follow labs. 9. We will continue to follow this patient. JOB# [id number]
--- NOTE | 2018-03-02 22:58 | Consultation ---
DATE OF CONSULTATION: 02/28/2018 REFERRING PHYSICIAN: Jonah Light MD TYPE OF CONSULTATION: Psychology. HISTORY OF PRESENT ILLNESS: The patient is a 57-year-old female. The patient is a resident of [facility]. The patient is known to this comic book writer from previous treatment at her placement. The patient is being admitted due to increased agitation and confusion. The following is by record review and by the patient's self-report. According to the staff at the patient's facility, the patient had become easily irritated, angry and upset as well as having difficulty with other residents. The patient has had a series of yelling and screaming episodes according to the staff at her facility. The patient currently denies any suicidal ideation, plan or intention. PAST MEDICAL HISTORY: Please see history and physical by Dr. Jaffe. PAST PSYCHIATRIC HISTORY: The patient is under the care of both a psychiatrist and a psychologist at her placement. SUBSTANCE ABUSE HISTORY: The patient denies any history. PSYCHOSOCIAL HISTORY: The patient did not answer questions about occupational or educational history or amish affiliation. The patient did not answer questions about family involvement, marital status or other family history. The patient did not answer questions about history of physical or sexual abuse. The patient indicated no current legal problems. MENTAL STATUS EXAMINATION: The patient appears to be her stated age. The patient's attitude is superficially cooperative. Eye contact is poor. Mood is irritable. Affect is constricted. Speech is delayed with intermittent loud outbursts. Thought process shows to be confused. The patient denied any auditory or visual hallucinations; however, the patient is exhibiting paranoid ideation and has made comments regarding suspicion of other residents being against her at her placement. She denied any suicidal ideation, plan or intention. Impulse control is limited. Concentration is poor. Sensorium is alert and oriented to person and place. The patient did not participate in the memory assessment. The patient did not participate in the interpretation of proverbs. Insight is impaired. Judgment is impaired. DIAGNOSTIC IMPRESSION: AXIS I: Major depressive disorder, recurrent, with psychosis. AXIS II: Deferred. AXIS III: Per Dr. Cat. TREATMENT PLAN: The patient has been seen by Dr. Light for psychiatric evaluation and for the management of the patient's psychotropic medications. We will provide supportive psychotherapy to include reality orientation, reality differentiation and reality integration. We will provide de-escalation as well as limit setting and encourage the patient to be able to demonstrate emotional and self-regulation prior to her discharge. We will provide coping strategies for phase of life issues to reduce depression as well. Thank you Dr. Light for this consult and the opportunity to participate in this patient's care. JOB# [id number] MTDD
--- NOTE | 2018-03-03 02:26 | Progress Notes ---
DATE: 03/02/2018 SUBJECTIVE: Staff was spoken to. The patient is interviewed. Mood is noted to be irritable. Affect is constricted. Insight and judgment at this time are noted to be still impaired. Impulse control is noted to be poor. Coping skills are also noted to be very poor. The patient has been having problems in participating in the groups. The patient is very reluctant to get up and then participate and the patient's blood pressure is noted to have very high and blood sugar is also coming high and the patient has been taking half of the Seroquel at this time. The patient is being closely monitored with Lexapro. ASSESSMENT: The patient is still depressed. PLAN: To continue the patient with the supportive therapy. I encouraged the patient to verbalize the concerns rather than to act out. The patient is going to be requested to have comprehensive metabolic panel along with the lipid profile. JOB# [id number]
[2018-03-03] MEDS: INSULIN ASPART, RECOMBINANT 100 UNITS/ML SUBQ SCH ×4 (07:17→16:55)
[2018-03-03 08:17] LABS: ALB/GLOB RATIO 0.9 (1.0-1.8); ALBUMIN 3.2 gm/dL (3.7-5.3); ANION GAP 14.5 (7.0-16.0); BILIRUBIN,TOTAL 0.4 mg/dL (0.3-1.0); CALCIUM SERUM 9.3 mg/dL (8.6-10.3); CARBON DIOXIDE 26.2 mEq/L (21.0-31.0); CREATININE - SERUM 2.3 mg/dL (0.6-1.2); GFR AFRICAN-AMERICAN 28.3 ml/min (>90); GFR NON AFRICAN-AMERICAN 23.4 ml/min; POTASSIUM SERUM 4.7 mEq/L (3.5-5.1); TOTAL PROTEIN,SERUM 6.8 gm/dL (6.0-8.3)
[2018-03-03] MEDS: Insulin Detemir 100 units/mL 10mL Vial SUBQ SCH ×2 (08:45→21:11)
[2018-03-03] MEDS: Multivitamin Tab PO SCH (09:01)
--- NOTE | 2018-03-03 15:44 | Progress Notes ---
DATE: 03/03/2018 SUBJECTIVE: Staff was spoken to. The patient is interviewed. Mood is noted to be irritable. Affect is constricted. The patient is isolative and withdrawn. The patient's coping skills are noted to be very poor. Blood sugar have been high and the patient is reluctant to comply with the dietary requirements. The patient has no insight into her illness. ASSESSMENT: The patient is still depressed. PLAN: To continue the patient with Lexapro and closely monitor the blood pressure and blood sugar and I encouraged the patient to comply with the treatment. JOB# [id number]
--- NOTE | 2018-03-03 18:16 | Progress Notes ---
DATE: 03/03/2018 SUBJECTIVE: The patient seen and examined. The patient lying in the bed. No new complaint. Blood sugars are elevated. Nurses are concerned, though Glucoscan report has revealed the patient's blood sugars range from 200-350 range. The patient's BUN and creatinine is remaining stable with normal electrolytes, unable to get meaningful history from the patient. PHYSICAL EXAMINATION: VITAL SIGNS: See nurse's note. HEENT: Poor dentition. NECK: Supple, no JVD. HEART: Regular. CHEST: Lung equal in expansion, no expiratory wheezing. ABDOMEN: Soft. No guarding or rigidity. Bowel sounds present. No palpable mass. EXTREMITIES: No edema. CLINICAL IMPRESSION: 1. Diabetes mellitus with elevated blood sugar. 2. Chronic kidney disease, stage III. 3. Hypertension. 4. Degenerative joint disease. 5. Dementia. 6. Psychotic disorder. 7. Cerebrovascular accident with left-sided weakness. 8. Dysphagia and dysarthria. PLAN: Continue Levemir insulin as ordered along with bolus insulin. Monitor the blood sugar and we will add insulin rn endoscopy with 15 mg of Actos and see how this patient does. Continue to provide other medications including general nursing care. Psych medication and psych followup as per psychiatrist. Blood pressure currently running low normal. We will just monitor the blood pressure for now. If continues to remain low, we will adjust the blood pressure medication. Care plan has been reviewed and discussed with staff. JOB# [id number]
[2018-03-04] MEDS: INSULIN ASPART, RECOMBINANT 100 UNITS/ML SUBQ SCH ×3 (06:41→16:30)
[2018-03-04] MEDS: Multivitamin Tab PO SCH ×2 (08:52→09:11)
[2018-03-04] MEDS: Insulin Detemir 100 units/mL 10mL Vial SUBQ SCH ×2 (10:23→20:58)
--- NOTE | 2018-03-05 01:28 | Progress Notes ---
DATE: 03/04/2018 SUBJECTIVE: Staff was spoken to. The patient is interviewed. Mood is noted to be irritable. Affect is constricted. Coping skills are noted to be still poor. The patient has been having difficult time to cope with the stress. The patient's blood sugar is still running around 250 as the patient has been placed on the close monitoring and patient's medication has been discontinued such as the Seroquel to make sure that the patient's sugar is not getting out of control. ASSESSMENT: The patient is still depressed. PLAN: To continue the patient with the supportive therapy, encouraged the patient to verbalize the concerns rather than to act out. JOB# [id number]
--- NOTE | 2018-03-05 03:09 | Progress Notes ---
DATE: SUBJECTIVE: The patient seen and examined. The patient is lying in the bed. The patient is currently on higher doses of insulin therapy. Blood sugars continues to remain elevated. PHYSICAL EXAMINATION: VITAL SIGNS: Temperature 97.9, pulse is 70, respiratory rate 18, blood pressure 150/77. HEENT: No facial asymmetry. NECK: Supple, no JVD. HEART: Regular. CHEST: Lung equal in expansion, no expiratory wheezing. ABDOMEN: Soft. No guarding or rigidity. Bowel sounds are present. No palpable mass. EXTREMITIES: No edema. NEUROLOGIC: Unremarkable, left-sided weakness noted. CLINICAL IMPRESSION: 1. Diabetes mellitus with elevated blood sugar. 2. Hyperlipidemia. 3. Hypertension. 4. Chronic kidney disease, stage III. 5. Degenerative joint disease. 6. Psychotic disorder. 7. Dementia. PLAN: Add Actos for insulin appetizer packer in order to control blood sugar for now. Continue to monitor blood sugar and continue basal bolus insulin therapy as well along with psych medication and psych followup. Statin and antihypertensive medication. We will adjust dose of insulin therapy while the patient is in the hospital. JOB# [id number]
[2018-03-05] MEDS: INSULIN ASPART, RECOMBINANT 100 UNITS/ML SUBQ SCH ×3 (06:36→19:19)
[2018-03-05] MEDS: Multivitamin Tab PO SCH (09:20)
[2018-03-05] MEDS: Insulin Detemir 100 units/mL 10mL Vial SUBQ SCH ×2 (09:33→21:14)
--- NOTE | 2018-03-05 11:00 | Progress Notes ---
DATE: PATIENT'S IDENTIFICATION: A 57-year-old female. SUBJECTIVE: The patient seen and examined. The patient is lying in the bed. Blood sugar continues to remain elevated. The patient was started on Actos yesterday. The patient has no new complaint. The patient continues to have expressive aphasia. OBJECTIVE: On today's exam, VITAL SIGNS: Temperature 98, pulse is 70, respiratory rate 18, blood pressure 115/60. HEENT: No facial asymmetry. NECK: Supple. No JVD. HEART: Regular. CHEST AND LUNGS: Equal in expansion, no expiratory wheezing. ABDOMEN: Soft, no guarding or rigidity. Bowel sounds present. No palpable mass. EXTREMITIES: No edema. NEUROLOGY: Left-sided weakness noted. CLINICAL IMPRESSION: 1. Diabetes mellitus with elevated blood sugar. 2. Hypertension. 3. Hyperlipidemia. 4. Chronic kidney disease 3. 5. Degenerative joint disease. 6. Psychotic disorder. PLAN: 1. Continue to monitor blood sugar. 2. Adjust the dose of insulin along with Actos. 3. Dysphagia diet. 4. Statin. 5. Antihypertensive medication. 6. Fall precaution. 7. General nursing care. 8. Psych managed per psychiatrist. 9. Care plan reviewed and discussed with staff. JOB# [id number]
--- NOTE | 2018-03-05 21:58 | Progress Notes ---
DATE: 03/05/2018 PSYCHIATRIC PROGRESS NOTE SUBJECTIVE: Staff was spoken to. The patient is interviewed. Mood is noted to be anxious and depressed. Affect is constricted. The patient has been having some issues with her blood sugar. Blood sugar is still very high at 365 and staff are requested to coordinate the care with the medical doctor to adjust the anti-hyperglycemic agents. ASSESSMENT: The patient's depression is resolving. PLAN: To continue the patient with the supportive therapy. Continue the Lexapro and followup. JOB# [id number]
[2018-03-06] MEDS: INSULIN ASPART, RECOMBINANT 100 UNITS/ML SUBQ SCH ×3 (06:51→17:18)
[2018-03-06] MEDS: Insulin Detemir 100 units/mL 10mL Vial SUBQ SCH ×2 (09:10→21:35)
[2018-03-06] MEDS: Multivitamin Tab PO SCH (09:15)
--- NOTE | 2018-03-07 00:56 | Progress Notes ---
DATE: 03/06/2018 SUBJECTIVE: The patient seen and examined. The patient is going to be discharged with [facility] today. No new event reported. The patient's blood sugars are still elevated, which could be managed in a senior living. The patient currently does not provide any meaningful history. PHYSICAL EXAMINATION: VITAL SIGNS: See nurse's note. HEENT: No facial asymmetry. NECK: Supple, no JVD. HEART: Both heart sounds are regular. CHEST: Lung equal in expansion with no expiratory wheezing. ABDOMEN: Soft. No guarding, no rigidity. Bowel sounds are present. No palpable mass. EXTREMITIES: No edema. NEUROLOGIC: Remarkable for left-sided weakness noted. CLINICAL IMPRESSION: 1. Diabetes mellitus. 2. Cerebrovascular accident with left late effect. 3. Hypertension. 4. Chronic kidney disease III. 5. Degenerative joint disease. 6. Psychotic disorder. 7. Dementia. 8. Decline in self-care, mobility. 9. Dysphagia and expressive aphasia. PLAN: Continue diabetes medication as the patient is receiving. Adjust the dose of diabetes medication at senior living. Continue to provide dysphagia diet. General nursing care, PT/OT along with continuation of the current medication for underlying illness. The patient will be followed by supervisor special education as an outpatient from senior living. Care plan has been reviewed with the staff. The patient will be followed by myself at senior living once the patient is discharged to senior living from psychiatric standpoint. JOB# [id number]
--- NOTE | 2018-03-07 04:22 | Progress Notes ---
DATE: 03/06/2018 PSYCHIATRIC PROGRESS NOTE SUBJECTIVE: Staff was spoken to. The patient is interviewed. Mood is noted to be less irritable. The patient has been isolative and withdrawn. Coping skills are noted to be very poor at this time. The patient has been having difficult time to cope with the stress. No side effects to the medications are noted. The patient's blood sugar is still coming very high and hence it is decided to order the lipid panel and follow the patient up with supportive therapy. JOB# [id number]
[2018-03-07] MEDS: INSULIN ASPART, RECOMBINANT 100 UNITS/ML SUBQ SCH ×3 (06:44→16:46)
[2018-03-07 06:59] LABS: CHOLESTEROL 167 mg/dL (<200); HDL -HIGH DENSITY LIPOPROTEIN 22 mg/dL (23-92); TRIGLYCERIDES 310 mg/dL (<150)
[2018-03-07] MEDS: Multivitamin Tab PO SCH (09:06)
[2018-03-07] MEDS: Insulin Detemir 100 units/mL 10mL Vial SUBQ SCH ×2 (09:07→21:08)
--- NOTE | 2018-03-07 23:39 | Progress Notes ---
DATE: 03/07/2018 PSYCHIATRIC PROGRESS NOTE PROGRESS ON THE UNIT: Staff was spoken to. The patient is interviewed. Mood is noted to be anxious. The patient has been isolative and withdrawn. Denies any command hallucinations. No delusions are noted. Insight and judgment are noted to be improving. Impulse control seems to be fair today. The patient is being closely monitored for her blood sugar, which is trending down, noted to be 232. The patient's triglycerides are 310, cholesterol is noted to be 167, HDL is noted to be 22. The patient is being closely monitored, encouraged to verbalize the concerns rather than to act out. ASSESSMENT: The patient is still depressed. PLAN: To continue the patient with current medications and follow up with the supportive therapy. JOB# [id number]
[2018-03-08] MEDS: INSULIN ASPART, RECOMBINANT 100 UNITS/ML SUBQ SCH ×3 (06:43→17:15)
[2018-03-08] MEDS: Multivitamin Tab PO SCH (09:55)
[2018-03-08] MEDS: Insulin Detemir 100 units/mL 10mL Vial SUBQ SCH (10:09)
--- NOTE | 2018-03-08 10:47 | Progress Notes ---
DATE: 03/08/2018 SUBJECTIVE: Staff was spoken to. The patient is interviewed. Mood is noted to be less irritable. Affect is appropriate. The patient is stating that she is doing a little bit better today. Blood sugar seems to be coming under control. No side effects to the medications are noted. ASSESSMENT: The patient's depression is stabilizing and the patient's paranoia has resolved and the patient, however, continues to have issues with her blood pressure ____. PLAN: To continue the patient with the supportive therapy and followup. JOB# [id number]
--- NOTE | 2018-03-08 18:22 | Progress Notes ---
DATE: 03/08/2018 SUBJECTIVE: The patient seen and examined. The patient's blood sugars continues to be elevated. The patient is getting all her medications, which has been prescribed. PHYSICAL EXAMINATION: Today's; VITAL SIGNS: Temperature 97.7, pulse is 70, respiratory rate is 18, and blood pressure 106/61. HEENT: No facial asymmetry. NECK: Supple, no JVD. HEART: Regular. CHEST: Lung equal in expansion, no expiratory wheezing. ABDOMEN: Soft. No guarding or rigidity. Bowel sounds are present. No palpable mass. EXTREMITIES: No edema. NEUROLOGIC: Left-sided weakness noted. CLINICAL IMPRESSION: 1. Diabetes mellitus with hyperglycemia. 2. Cerebrovascular accident. 3. Hypertension. 4. Hyperlipidemia. 5. Chronic kidney disease, stage III. PLAN: 1. Increase Levemir insulin and continue to monitor blood sugar and adjust the insulin. Continue other medication as prescribed. 2. Psychotic evaluation and management deferred to psychiatrist. 3. We will continue to follow this patient during the stay in the hospital. JOB# [id number]
[2018-03-08] MEDS ORDERED: Insulin Detemir 100 units/mL 10mL Vial SUBQ SCH (21:00)
[2018-03-09] MEDS: INSULIN ASPART, RECOMBINANT 100 UNITS/ML SUBQ SCH ×3 (06:36→16:06)
[2018-03-09] MEDS ORDERED: Insulin Detemir 100 units/mL 10mL Vial SUBQ SCH (09:00)
[2018-03-09] MEDS: Multivitamin Tab PO SCH (09:06)
--- NOTE | 2018-03-09 11:13 | Progress Notes ---
DATE: 03/09/2018 SUBJECTIVE: The patient seen and examined. The patient is lying in the bed. No new event. PHYSICAL EXAMINATION: VITAL SIGNS: Temperature 96.9, pulse 62, respiratory rate 18, blood pressure 100/52. HEENT: No facial asymmetry. NECK: Supple, no JVD. HEART: Regular. CHEST AND LUNGS: Equal in expansion, no expiratory wheezing. ABDOMEN: Soft. No guarding or rigidity. Bowel sounds are present. No palpable mass. EXTREMITIES: No edema. NEUROLOGIC: Unremarkable left-sided weakness. MEDICATIONS: Medication administration record has been reviewed. CLINICAL IMPRESSION: 1. Diabetes mellitus with elevated blood sugar. 2. Hypertension. 3. Hyperlipidemia. 4. Degenerative joint disease. 5. Cerebrovascular accident with late effect. 6. Psychotic disorder exacerbation. PLAN: The patient's blood pressure continues to remain low for last 2 days. The patient is currently on Lotensin twice a day. I will bring down the dose to once a day for now along with metoprolol and see how this patient does. The patient will be monitored on blood pressure and we will give appropriate recommendations. Care plan has been reviewed. JOB# [id number]
--- NOTE | 2018-03-10 00:29 | Progress Notes ---
DATE: 03/09/2018 PSYCHIATRIC PROGRESS NOTE SUBJECTIVE: Staff was spoken to. The patient is interviewed. Mood is noted to be irritable. Affect is constricted. Insight and judgment at this time are noted to be improving. Impulse control is noted to be fair. The patient, however, has not been presenting with any psychotic symptoms. The patient is psychomotorically retarded, but is not presenting with any threats to harm self or others. ASSESSMENT: The patient is stabilizing. PLAN: To discharge the patient today for followup on outpatient basis. JOB# [id number]
--- NOTE | 2018-03-20 21:17 | Discharge Summary ---
DATE OF DISCHARGE: 03/09/2018 IDENTIFYING DATA: The patient is a 57-year-old woman, resident of a assisted facility. JUSTIFICATION OF HOSPITALIZATION: The patient is admitted on a voluntary basis in view of her confusion and agitation. CHIEF COMPLAINT: "I'm frustrated and I should not be in here." DIAGNOSES AT THE TIME OF ADMISSION: AXIS I: Major depressive disorder, recurrent with psychotic symptoms. AXIS II: None. AXIS III: As per Dr. Cat. HISTORY OF PRESENT ILLNESS: Please refer to the 02/27/2018 dictation done by me. Physical examination was done by Dr. Cat and is noted to be significant for diabetes, hypertension, seizure disorder, and history of cerebrovascular accident. HOSPITAL COURSE AND RESPONSE TO TREATMENT: The patient's physical examination was done by Dr. Gillespie and is significant for the above-mentioned problems. HOSPITAL COURSE AND RESPONSE TO TREATMENT: The patient has been observed on the inpatient unit, provided with supportive psychotherapy. The patient has been provided with individual as well as family counseling and the patient has been placed on the quetiapine, which was gradually increased to 100 mg and the patient also has been placed on the Lexapro. The patient's blood sugar has been closely monitored and it became an issue and it was not stabilizing and the patient has been closely monitored. With these medications, the patient was observed and was discharged to be followed up on an outpatient basis. MENTAL STATUS EXAMINATION AT THE TIME OF DISCHARGE: The patient's mood is noted to be anxious. Affect is appropriate. The patient's insight and judgment are noted to be improving. Impulse control seems to be fair. Coping skills are noted to be fair. The patient was discharged finally on 03/09/2018 with recommendation that she is going to be seeking treatment on an outpatient basis. MENTAL STATUS EXAMINATION: At the time of discharge, the patient's mood is noted to be anxious. Coping skills are noted to be fair. Sleep and appetite also noted to be fair. No side effects to the medications are noted at the time of the discharge. CONDITION AT THE TIME OF DISCHARGE: Noted to be stable. DIAGNOSES AT THE TIME OF DISCHARGE: AXIS I: Major depressive disorder with psychotic symptoms. AXIS II: None. AXIS III: Hypertension, diabetes mellitus and obesity. AFTERCARE PLAN: The patient is discharged back to the assisted facility for further followup on an outpatient basis. PSYCHIATRIC# [id number]
== END 2018-03-09 17:00 | DRG 885 ==
LOC: ER 16:36 → GERO2 22:26
PROVIDERS: ADMIT Psychiatry & Neurology Psychiatry; ATTEND Psychiatry & Neurology Psychiatry
DX: F33.3 Major depressive disorder, recurrent, severe with psychotic symptoms (principal); N18.9 Chronic kidney disease, unspecified; E11.65 Type 2 diabetes mellitus with hyperglycemia; N18.4 Chronic kidney disease, stage 4 (severe); F23 Brief psychotic disorder; R47.01 Aphasia; I12.9 Hypertensive chronic kidney disease with stage 1 through stage 4 chronic kidney disease, or unspecified chronic kidney disease; E11.22 Type 2 diabetes mellitus with diabetic chronic kidney disease; E78.5 Hyperlipidemia, unspecified; E78.00 Pure hypercholesterolemia, unspecified; G40.909 Epilepsy, unspecified, not intractable, without status epilepticus; E66.01 Morbid (severe) obesity due to excess calories; I69.30 Unspecified sequelae of cerebral infarction; M19.90 Unspecified osteoarthritis, unspecified site; R13.10 Dysphagia, unspecified; E11.51 Type 2 diabetes mellitus with diabetic peripheral angiopathy without gangrene; F03.90 Unspecified dementia, unspecified severity, without behavioral disturbance, psychotic disturbance, mood disturbance, and anxiety; Z88.5 Allergy status to narcotic agent; Z88.0 Allergy status to penicillin; Z91.81 History of falling; Z68.32 Body mass index [BMI] 32.0-32.9, adult
CPT/HCPCS: 36415-UA; 80053-TC; 80061-TC; 82948-90; 83036-90; 84443-TC; 84484-TC; 85025-TC; 86592-TC; 93005; J1815; Z7610